=== PATIENT | female | born 1930 | race Caucasian/White ===

== ENCOUNTER 2016-08-31 03:20 | Emergency (ER) | payer OTHER ==
[~2016-08-31] VITALS: Ht 165.1 cm; Wt 72.6 kg
[~2016-08-31 03:20] MED LIST: ACCU-CHECK SOF1 EACH; ACETAMINOPHEN325 M1; ACETAMINOPHEN325 M1 PO; ALPRAZOLAM 0.50.5 M1 PO; ALPRAZOLAM 0.50.5 MG PO; ALPRAZOLAM PO; AMARYL1 MG; AMBIEN 5 MG TABL5 M1 PO; AMITRIPTYLINE H25 M2 PO; AMLODIPINE BESYL5 M1 PO; ARTIFICIAL TEAR15 M1 OPHTHALMIC; ASPERCREME 1141.7 GM TP; ASPERCREME76.5 GM TP; ASPIR 8181 M1 PO; ASPIR 8181 MG PO; ATIVAN0.5 MG; AUGMENTIN 875875 M1 PO; B12INJ IM; BENTYL; BENTYL 10 MG CA10 MG PO; BENTYL10 MG PO; BISAC-EVAC10 MG; BISAC-EVAC10 MG RECTAL; BONIVA150 MG; BUSPIRONE HCL10 MG PO; BUTALB-APAP-CA1 EACH PO; BUTRANS1 EAC4 TD; CARVEDILOL12.5 MG PO; CEPHALEXIN 500500 M3 PO; CHLORDIAZEPOXID10 MG PO; CHLORDIAZEPOXIDE5 M2 PO; CITRATE OF MAG296 ML; CLOBETASOL PROP50 M1; CLOTRIMAZOLE-BE15 GM TOP; CLOTRIMAZOLE-BE30 M1 TP; CONSTULOSE10 GM/152 PO; COREG6.25 MG PO; DESYREL150 MG; DONNATAL E16.2 MG/1 PO; DONNATAL PO; DURAGESIC1 EAC2 TD; ENDOCET 10-3251 EACH; EXCEDRIN CAPLE1 EACH PO; FAMOTIDINE20 MG PO; FENTANYL PA25 MCG/HR TD; FENTANYL PA25 MCG/HR TRANSDERM; FENTANYL1 EACH TD; FERRO-TIME325 MG PO; FIBER SMOOTH PO; GENTEAL GEL DRO15 ML OPHTHALMIC; GLUCAGON IM; GLUCOPHAGE1000 MG; GLUCOPHAGE500 MG PO; GLUCOSE4 GM PO; GLUTOSE GEL 1515 G1 PO; GLYCOLAX POWDER17 G1 PO; HUMALOG100 UNIT/1 SUBQ; IMDUR 30 MG TAB30 M1 PO; IRON325 PO; ISOSORBIDE MONO30 M1 PO; LAMICTAL; LAMICTAL100 MG PO; LAMOTRIGINE200 MG PO; LEVOTHYROXINE0.05 MG PO; LIQUITEARS15 ML; LISINOPRIL20 MG; LOPERAMIDE 2 MG2 M1; LOTEMAX5 ML OPHTHALMIC; MARINOL2.5 MG PO; MEDROL DOSPAK21 TA1 PO; MEDROL4 MG PO; MELATONIN3 MG PO; METAMUCIL PAC1 UDPKT PO; METAMUCIL POWD822 GM PO; METHOCARBAMOL500 M2 PO; MINTOX; MIRALAX17 GM PO; MIRALAX255 GM; MISOPROSTOL 2200 MC1 PO; MISOPROSTOL PO; MOM PO; MS CONTIN15 MG PO; MYLANTA 12 OZ355 M1 PO; NITRODUR; NITROGLYCERIN0.4 MG SL; NITROGLYCERIN0.4 MG SUBLING; NITROSTAT0.4 MG; NITROSTAT0.4 MG SUBLING; NIZORAL120 ML; NIZORAL120 ML TOP; NORCO 10-325 T1 EACH PO; NORVASC5 MG PO; NYSTATIN 100,0015 G1 TOP; ONDANSETRON HCL4 M2 PO; ONDANSETRON HCL4 M3 PO; PAXIL10 MG PO; PAXIL20 MG PO; PERCOCET 10-321 EACH PO; PERCOCET 5-3251 EACH PO; PERCOCET 7.5-31 EACH PO; PRILOSEC 20 MG20 MG PO; PRINIVIL20 MG PO; REFRESH OPTIVE10 ML OPHTHALMIC; REGLAN 10 MG TA10 MG PO; REMERON15 MG PO; ROBINUL0.2 MG/1 M PO; SENOKOT-S1 TA1 PO; SEROQUEL 25 MG25 M1; SEROQUEL 50 MG50 M1 PO; SEROQUEL XR400 M1 PO; SEROQUEL200 MG PO; SEROQUEL400 MG PO; SPECTAZOLE; SUSTANE EYE DROPS; SYSTANE 0.3-0.1 EACH OP; SYSTANE BALANCE10 ML OPHTHALMIC; SYSTANE GEL10 GM OP; SYSTANE1 EACH TP; TIZANIDINE HCL 22 M1 PO; TOPROL XL50 MG PO; TRAMADOL 50 MG50 MG PO; TRIAMCINOLONE 080 G3 TP; TRIAMCINOLONE A80 G2 TOP; TYLENOL W/CODEI1 TA2 PO; TYLENOL325 MG PO; ULTRAM 50MG TAB50 MG PO; UNICOMPLEX M TA1 TA1 PO; XANAX XR1 MG PO; XANAX XR2 MG PO; ZOFRAN4 MG PO; [UNRECOGNIZED DRUG - CODE] PO; [UNRECOGNIZED DRUG - OTHER] PO
[2016-08-31 03:41] LABS: HEMATOCRIT 35.5 % (37.0-47.0); HEMOGLOBIN 12.4 gm/dL (12.0-15.0); MCH 33.7 pg (26.0-34.0); MCHC 34.9 g/dL (28.0-37.0); MCV 96.6 fL (80.0-100.0); PLATELET COUNT 261 thou/uL (150-400); RBC 3.68 mil/uL (4.20-5.00); RDW 13.4 % (10.5-14.5); WBC 6.9 thou/uL (4.0-11.0)
[2016-08-31] MEDS ORDERED: IRON325 PO (03:45)
[2016-08-31] MEDS ORDERED: CHLORDIAZEPOXID10 MG PO (03:46)
[2016-08-31 03:53] LABS: CALCIUM 8.9 mg/dL (8.5-10.1); CREATININE 1.1 mg/dL (0.6-1.0); POTASSIUM 4.7 mmol/L (3.5-5.1)
[2016-08-31 03:58] LABS: ALBUMIN 3.9 g/dL (3.4-5.0); TOTAL BILIRUBIN 0.5 mg/dL (<0.1-1.0); TOTAL PROTEIN 6.8 g/dL (6.4-8.2)
[2016-08-31 03:59] LABS: MANUAL DIFF YES
[2016-08-31 04:28] LABS: ABSOLUTE NEUTROPHILS 4.5 thou/uL (1.4-8.2); TOTAL CELL COUNT 100
[2016-08-31 04:53] LABS: URINE BILIRUBIN NEGATIVE (Negative); URINE BLOOD NEGATIVE (Negative); URINE COLOR YELLOW; URINE GLUCOSE-RANDOM* NEGATIVE (Negative); URINE KETONES NEGATIVE (Negative); URINE LEUKOCYTES-REFLEX NEGATIVE (Negative); URINE PROTEIN (DIPSTICK) NEGATIVE (Negative); URINE UROBILINOGEN 0.2 E.U./dl (0.2-1.0)
[2016-08-31] MEDS ORDERED: SENOKOT-S1 TA1 PO (05:04)
== END 2016-08-31 05:10 ==
LOC: ER 03:20
PROVIDERS: Emergency Medicine
DX: R10.9 Unspecified abdominal pain (principal); M54.5 Low back pain; Z96.642 Presence of left artificial hip joint; I10 Essential (primary) hypertension; E11.9 Type 2 diabetes mellitus without complications; F32.9 Major depressive disorder, single episode, unspecified

== ENCOUNTER 2016-08-31 08:24 | Emergency (ER) | payer OTHER ==
[~2016-08-31] VITALS: Ht 165.1 cm; Wt 74.8 kg
== END 2016-08-31 10:43 ==
LOC: ER 08:24
DX: M54.89 Other dorsalgia (principal); Z96.642 Presence of left artificial hip joint; I10 Essential (primary) hypertension; E11.9 Type 2 diabetes mellitus without complications; F32.9 Major depressive disorder, single episode, unspecified; Z98.890 Other specified postprocedural states

== ENCOUNTER 2016-09-05 08:35 | Emergency (ER) | payer OTHER ==
[~2016-09-05] VITALS: Ht 165.1 cm; Wt 73.9 kg
[~2016-09-05 08:35] MED LIST changes: -ALLERGY RELIEF10 M1 PO; -MIRTAZAPINE15 M2 PO; -OXYCODONE-ACET1 EACH PO
[2016-09-05] MEDS ORDERED: ALLERGY RELIEF10 M1 PO (08:51)
[2016-09-05] MEDS ORDERED: MIRTAZAPINE15 M2 PO (08:51)
[2016-09-05] MEDS ORDERED: REMERON15 MG PO (13:19)
[2016-09-05] MEDS ORDERED: OXYCODONE-ACET1 EACH PO (13:54)
== END 2016-09-05 12:53 | disposition home or self-care (01) ==
LOC: ER 08:35
DX: G89.29 Other chronic pain (principal); M54.5 Low back pain; I10 Essential (primary) hypertension; E11.9 Type 2 diabetes mellitus without complications; K58.9 Irritable bowel syndrome, unspecified; G43.909 Migraine, unspecified, not intractable, without status migrainosus; F32.9 Major depressive disorder, single episode, unspecified; M53.3 Sacrococcygeal disorders, not elsewhere classified; F10.10 Alcohol abuse, uncomplicated

== ENCOUNTER → 2016-09-05 | Outpatient (CLI) | payer OTHER ==
[~2016-09-05] VITALS: Ht 165.1 cm; Wt 70.1 kg
[~2016-09-05] MED LIST changes: +ALLERGY RELIEF10 M1 PO; +MIRTAZAPINE15 M2 PO; +OXYCODONE-ACET1 EACH PO
--- NOTE | ~2016-09-05 | HPC ---
[facility] [place] [address] PAIN MANAGEMENT CONSULTATION Name: SARAVANAN HERNANDEZ Room #: REG [facility] M.R.#: [id number] Admission: 09/05/16 Attend Phys: Bhaskar Underwood DO Discharge: Date of : 32 Report #: [id number] THIS REPORT FOR: //name// CC: Kelechi Underwood The patient is an 85-year-old female, long known to the pain clinic, being treated for chronic pain syndrome requiring complex medication management, history of lumbar radiculopathy, axial back pain and headaches. Last seen in pain clinic, 07/18/2016. We continued her on Duragesic 25 mcg q. 72 hours, Fioricet for headaches, limit 45 tablets for 30 days and tizanidine 2 mg t.i.d. for spasm. In the interval since we last saw her, she has been in the ER several times, 08/31/2016, she was in for constipation. 09/05/2016, she was in for increasing back pain and again this morning, she was in for increasing low back pain. She had 2 boluses of morphine with some efficacy. She returns to pain clinic noting pain is in the posterior aspect of the legs, low back in L5 distribution. Pain is exacerbated with standing and walking. She rates it up to an 8/10, sharp, and aching. It is episodic. PHYSICAL EXAMINATION: Relatively unchanged, 85-year-old female, BMI is 25.7 kilograms per meter squared. Vital signs are stable. She has somewhat of a flat affect and is on multiple central acting agents for her significant psychiatric concerns, she takes mirtazapine, chlordiazepoxide at bedtime, Seroquel, Lamictal, buspirone. Objectively lower extremity strength is diminished, but symmetric. Straight leg raise is positive bilaterally. Diffuse tenderness across the low back. No discrete trigger points are noted. Skin integument is otherwise intact. We reviewed the MRI from 2014 (12/09/2014), which notes diffuse spondylosis with some moderate anterior wedging T1 and T12. Those are old fractures. Slight retrolisthesis L1 on L2. ASSESSMENT: 1. Symptomatic lumbar radiculopathy by clinical exam with bilateral L5-S1 radicular symptoms. With acute pain presently, we have elected to get the patient a low dose injection of Toradol 50 mg IM (EGFR is moderately diminished at 47, she does not take any oral anti-inflammatory medications). 2. We will seek authorization for lumbar epidural injection under fluoroscopy at L5-S1 next week. 3. I have taken the liberty of starting the patient on oxycodone (Percocet 5/325) t.i.d. I gave her prescription for 21 tablets. Continue Duragesic unchanged. Discharged in good and stable condition. We will seek authorization for lumbar [address] [address] PAIN MANAGEMENT CONSULTATION Name: SARAVANAN HERNANDEZ Room #: REG Felecia Castellanos#: [id number] Admission: 09/05/16 Attend Phys: Bhaskar Underwood DO Discharge: Date of : 32 Report #: [id number] epidural injection under fluoroscopy at next visit. She has ongoing radicular pain, bilateral L5 distribution, positive neural tensioning symptoms. She has been to the ER now twice with the acute exacerbation of pain in the last 2 weeks. She is intolerant of oral antinflammatory medications due to somewhat tenuous renal function. I did give her a low dose IM injection today of Toradol. She prior had a lumbar epidural injection in July of 2015 with incremental improvement of baseline pain. <ELECTRONICALLY SIGNED> By: Bhaskar Underwood DO 09/06/16 0837 1600 0003 Bhaskar Underwood DO /nt
[2016-09-05 13:14] VITALS: BP 144/72
== END | disposition home or self-care (01) ==
LOC: PAIN 07:17
DX: G89.4 Chronic pain syndrome (principal); M54.16 Radiculopathy, lumbar region; M47.894 Other spondylosis, thoracic region; I10 Essential (primary) hypertension

== ENCOUNTER 2016-09-12 08:15 | Emergency (ER) | payer OTHER ==
[~2016-09-12] VITALS: Ht 165.1 cm; Wt 69.8 kg
[2016-09-12] MEDS ORDERED: FENTANYL PA25 MCG/HR TRANSDERM (11:11)
[2016-09-16] MEDS ORDERED: VITAMIN B-12500 MCG PO (05:02)
== END 2016-09-12 09:42 | disposition home or self-care (01) ==
LOC: ER 08:15
DX: M54.5 Low back pain (principal); I10 Essential (primary) hypertension; E11.9 Type 2 diabetes mellitus without complications; K58.9 Irritable bowel syndrome, unspecified; M10.9 Gout, unspecified; G43.909 Migraine, unspecified, not intractable, without status migrainosus; F32.9 Major depressive disorder, single episode, unspecified; Z96.642 Presence of left artificial hip joint

== ENCOUNTER → 2016-09-12 | Outpatient (CLI) | payer OTHER ==
[~2016-09-12] VITALS: Ht 165.1 cm; Wt 69.9 kg
[~2016-09-12] MED LIST changes: +ALLERGY RELIEF10 M1 PO; +MIRTAZAPINE15 M2 PO; +OXYCODONE-ACET1 EACH PO
--- NOTE | ~2016-09-12 | HPC ---
[facility] [address] [place] [facility] [place] [address] PAIN MANAGEMENT CONSULTATION Name: SARAVANAN HERNANDEZ Room #: REG Felecia Roberts.#: [id number] Admission: 09/12/16 Attend Phys: Bhaskar Underwood DO Discharge: Date of : 32 Report #: [id number] THIS REPORT FOR: //name// CC: Kelechi Underwood HISTORY OF PRESENT ILLNESS: The patient is an unfortunate 85-year-old female, long treated for chronic pain syndrome, lumbar radiculopathy, axial back pain, right hip pain, status post total hip arthroplasty, requiring complex medication management. I last saw the patient on 09/05/2016, continued on Duragesic 25 mcg q. 72 hours, Fioricet for headaches, and tizanidine for muscle spasm. At last visit, we elected to move forward with authorization for epidural injection under fluoroscopy. I gave her a short course of Percocet 5/325, 21 tablets to use p.r.n. In the interval since I last saw her, she has been in the ER 3 more times later that day, again on 09/06/2016 and 09/12/2016. 09/12/2016 was this morning, she was seen for increasing back pain and got an IM injection of morphine. Presents to the pain clinic today with ongoing pain. The pain is in low back, right hip and leg. Antalgic gait with positive straight leg raise on this side. ASSESSMENT: Symptomatic lumbar radiculopathy. RECOMMENDATIONS: Lumbar epidural injection under fluoroscopy today. If symptoms do not improve, we will have the patient to follow up with Dr. Norris for evaluation of her right total hip arthroplasty. She had had total hip arthroplasty some 5 years ago, but unfortunately that procedure was complicated with an infection. The patient claims that she was told that the new hip arthroplasty would really last "5 years", and she has fixated on this number. ASSESSMENT: Symptomatic lumbar radiculopathy. PROCEDURE NOTE: Lumbar epidural injection under fluoroscopy. DESCRIPTION OF PROCEDURE: After both written and informed consent to include risk of spinal cord damage, increased pain, weakness and dural puncture, the patient was taken to the fluoroscopy suite, placed in the prone position. After sterile prep and drape, a skin wheal with lidocaine was raised. A 22-gauge epidural Tuohy needle was inserted in the midline at L5-S1 with good loss to resistance. Negative aspiration for cerebrospinal fluid or blood was noted. Then 1 mL of Omnipaque under biplanar fluoroscopy showed good spread within the epidural space. This was followed with 80 mg of triamcinolone plus 12 mcg of fentanyl was then injected to flush the needle; it was removed. The patient was [address] [address] PAIN MANAGEMENT CONSULTATION Name: SARAVANAN HERNANDEZ Room #: REG SHAHANA Castellanos#: [id number] Admission: 09/12/16 Attend Phys: Bhaskar Underwood DO Discharge: Date of : 32 Report #: [id number] monitored for an appropriate period of time and discharged in good and stable condition. By: [id number] Bhaskar Underwood DO /nt
[2016-09-12 10:18] VITALS: BP 179/70
== END ==
LOC: PAIN 07:02
DX: G89.4 Chronic pain syndrome (principal); M54.16 Radiculopathy, lumbar region; I10 Essential (primary) hypertension

== ENCOUNTER 2016-09-18 18:30 | Emergency (ER) | payer OTHER ==
[~2016-09-18] VITALS: Ht 165.1 cm; Wt 69.8 kg
[~2016-09-18 18:30] MED LIST changes: +VITAMIN B-12500 MCG PO
[2016-09-18] MEDS ORDERED: PERCOCET 5-3251 EACH PO (19:32)
== END 2016-09-18 20:38 | disposition home or self-care (01) ==
LOC: ER 18:30
DX: M54.5 Low back pain (principal); G89.29 Other chronic pain; I10 Essential (primary) hypertension; E11.9 Type 2 diabetes mellitus without complications; F32.9 Major depressive disorder, single episode, unspecified; Z96.642 Presence of left artificial hip joint

== ENCOUNTER 2016-09-28 10:40 | Observation (INO) | payer OTHER ==
[~2016-09-28] VITALS: Ht 165.1 cm; Wt 70.3 kg
--- NOTE | ~2016-09-28 | EKG ---
[place] [address] [facility] [place] [address] ELECTROCARDIOGRAM REPORT Name: SARAVANAN HERNANDEZ Room #: 306-P [facility] M.R.#: [id number] Admission: 09/28/16 Attend Phys: Mariano Orozco MD Discharge: Date of : 32 Report #: [id number] THIS REPORT FOR: //name// [facility] ED Test Date: 2016-09-28 Test Time: 10:54:01 Pat Name: SARAVANAN HERNANDEZ Department: Room: 306 Gender: F Professor Of Languages: Daja CAMPUZANO : 1930 Requested By: Gallito Calvillo Order Number: [id number] MD: Chele Melgar Measurements Intervals [place] Rate: 64 P: 33 AR: 173 QRS: 13 QRSD: 98 T: 25 QT: 385 QTc: 398 Interpretive Statements Sinus rhythm No significant abnormality Compared to ECG 03/30/2016 13:45:14 Low QRS voltage now present T wave abnormality less prominent Electronically Signed On 09-28-2016 16:51:52 CDT by Chele Melgar [email or web address] <ELECTRONICALLY SIGNED> By: Chele Melgar MD, [facility] 09/28/16 1651 1054 1054 Chele Melgar MD, [facility] /EPI
--- NOTE | ~2016-09-28 | H ---
[facility] [place] [address] [address] HISTORY AND PHYSICAL Name: SARAVANAN HERNANDEZ Room #: 306-P [facility] M.R.#: [id number] Admission: 09/28/16 Attend Phys: Mariano Orozco MD Discharge: Date of : 32 Report #: [id number] THIS REPORT FOR: //name// CC: Kelechi Orozco DATE OF SERVICE: 09/28/2016 DATE OF ADMISSION: 09/28/2016 CHIEF COMPLAINT: Constipation and not feeling well. HISTORY OF PRESENT ILLNESS: The patient is an 85-year-old female with generalized anxiety, who presents to [facility] Emergency Department because she has not been feeling well. She complains that she has been constipated and has not been feeling well for the past several days. She also has generalized pains in her legs. She states that she has problems with persistent constipation, but having diarrhea and that her current issues with her bowel patterns has resulted in poor oral intake and associated 10-pound weight loss. Workup in the Emergency Department revealed she had low grade temperature 38.0. Otherwise, she also had a sodium of 122, potassium of 5.2, otherwise the rest of her workup was unremarkable. She has been admitted for medical management of fever and hyponatremia. PAST MEDICAL HISTORY: Hypertension, generalized anxiety, fibromyalgia with chronic pain syndrome, hypothyroidism, irritable bowel syndrome with constipation. ALLERGIES: No known drug allergies. MEDICATIONS: Amlodipine 5 mg daily, aspirin 81 mg daily, fentanyl patch 25 mcg per hour patch topical change every 72 hours, ferrous sulfate 325 mg daily at diagnosis, at iron deficiency anemia, levothyroxine 50 mcg daily, loratadine 10 mg daily, Seroquel 400 mg at bedtime, multivitamin 1 tablet daily, vitamin B12 500 mcg daily, Coreg 12.5 mg b.i.d., Lamictal 100 mg b.i.d., lisinopril 20 mg daily, BuSpar 10 mg t.i.d., misoprostol 200 mg t.i.d., Systane eyedrops 1 drop 3 times a day, chlordiazepoxide 10 mg capsule at bedtime p.r.n., Nitrostat 0.4 mg sublingual as needed, tizanidine 2 mg t.i.d. p.r.n. FAMILY HISTORY: Noncontributory. SOCIAL HISTORY: The patient resides at [facility]. She denies tobacco or alcohol use. REVIEW OF SYSTEMS: GENERAL: A subjective 10-pound weight [place] [address] HISTORY AND PHYSICAL Name: SARAVANAN HERNANDEZ Room #: 306-P [facility] M.R.#: [id number] Admission: 09/28/16 Attend Phys: Mariano Orozco MD Discharge: Date of : 32 Report #: [id number] HEENT: Negative. NECK: Negative. PULMONARY: Negative. CARDIAC: Negative. GASTROINTESTINAL: Constipation/diarrhea with poor oral intake. GENITOURINARY: Negative. MUSCULOSKELETAL: Chronic leg pains and sees pain management with Dr. Underwood. She ambulates with a walker. LYMPHATICS: Negative. NEUROLOGIC: Generalized anxiety. PHYSICAL EXAMINATION: GENERAL: The patient is pleasant, cooperative female sitting up in her hospital bed in no apparent distress. VITAL SIGNS: Reveal temperature of 38.0 initially, pulse of 68, respiratory rate 18, blood pressure 135/53. HEENT: Head is normocephalic, atraumatic. Pupils are equal and reactive. Extraocular muscles are intact. Oropharynx is moist. NECK: Supple. Trachea midline. LUNGS: Clear to auscultation bilaterally. CARDIOVASCULAR: Regular rate and rhythm. ABDOMEN: Soft, nontender, nondistended with normoactive bowel sounds. SKIN: Warm and dry. Turgor adequate. LYMPHATICS: No cervical or axillary lymphadenopathy. NEUROLOGIC: She is awake, alert and oriented x 3. Cranial nerves 2-12 are within normal limits without focal neurologic deficit or lateralizing signs. LABORATORY DATA: Pertinent labs include sodium 122, potassium 5.2, chloride 89, ALT of 21. Troponin is less than 0.04, CBC is unremarkable. Urinalysis is unremarkable, CT abdomen and pelvis shows hiatal hernia. No focal inflammatory etiology for patient's symptoms. There is noted compression deformities at T12 and L1. ASSESSMENT AND PLAN: 1. Fever. 2. Hyponatremia. 3. Irritable bowel syndrome with predominant constipation. 4. Hypertension. 5. Fibromyalgia. 6. Anxiety. PLAN: Monitor her vital signs and watch for fever. We will hold antibiotics at this time and monitor her bowel pattern and monitor for watching for diarrhea as gastroenteritis can cause fevers. We will repeat CBC with diff and BMP in the morning. We will resume home medications. We will also initiate DVT and GI prophylaxis. [address] [place] [address] HISTORY AND PHYSICAL Name: SARAVANAN HERNANDEZ Room #: 306-P [facility] MRayrayRRayray#: [id number] Admission: 09/28/16 Attend Phys: Mariano Orozco MD Discharge: Date of : 32 Report #: [id number] CODE STATUS: DNR per patient's request. <ELECTRONICALLY SIGNED> By: Mariano Orozco MD 09/29/16 1238 2102 1209 Mariano Orozco MD /nt
[2016-09-28 10:41] VITALS: BP 135/53
[2016-09-28 11:53] LABS: HEMATOCRIT 35.2 % (37.0-47.0); HEMOGLOBIN 12.6 gm/dL (12.0-15.0); MANUAL DIFF YES; MCHC 35.7 g/dL (28.0-37.0); MCV 98.1 fL (80.0-100.0); PLATELET COUNT 328 thou/uL (150-400); RBC 3.59 mil/uL (4.20-5.00); RDW 12.2 % (10.5-14.5); WBC 7.4 thou/uL (4.0-11.0)
[2016-09-28 12:01] LABS: ANION GAP 8 mmol/L (7-16); BUN 17 mg/dL (7-18); CHLORIDE 89 mmol/L (98-107); CO2 25 mmol/L (21-32); GLUCOSE 162 mg/dL (74-106); POTASSIUM 5.2 mmol/L (3.5-5.1); SODIUM 122 mmol/L (136-145)
[2016-09-28 12:08] LABS: ALBUMIN 3.8 g/dL (3.4-5.0); ALKALINE PHOSPHATASE 50 U/L (46-116); SGOT 16 U/L (15-37); SGPT 21 U/L (30-65); TOTAL BILIRUBIN 0.7 mg/dL (<0.1-1.0); TOTAL PROTEIN 6.7 g/dL (6.4-8.2); TROPONIN-I < 0.04 ng/mL (<0.04-0.07)
[2016-09-28 12:11] LABS: ABSOLUTE NEUTROPHILS 6.5 thou/uL (1.4-8.2); TOTAL CELL COUNT 100
[2016-09-28 12:12] LABS: ANISOCYTOSIS SLIGHT
[2016-09-28 12:25] LABS: URINE BILIRUBIN NEGATIVE (Negative); URINE BLOOD NEGATIVE (Negative); URINE COLOR YELLOW; URINE GLUCOSE-RANDOM* NEGATIVE (Negative); URINE KETONES NEGATIVE (Negative); URINE LEUKOCYTES-REFLEX NEGATIVE (Negative); URINE PROTEIN (DIPSTICK) NEGATIVE (Negative); URINE SPECIFIC GRAVITY <= 1.005 (1.003-1.035); URINE UROBILINOGEN 0.2 E.U./dl (0.2-1.0)
[2016-09-28] MEDS ORDERED: LEVSIN0.125 MG PO (13:15)
[2016-09-28 16:00] VITALS: BP 117/56
[2016-09-28 19:38] VITALS: BP 167/52
[2016-09-29 04:04] VITALS: BP 164/56
[2016-09-29 04:47] LABS: ABSOLUTE NEUTROPHILS 4.3 thou/uL (1.4-8.2); BASOPHILS 0.2 % (0.0-2.0); EOSINOPHILS 0.6 % (0.0-3.0); HEMATOCRIT 32.8 % (37.0-47.0); HEMOGLOBIN 11.7 gm/dL (12.0-15.0); LYMPHOCYTES 20.5 % (24.0-44.0); MCH 34.9 pg (26.0-34.0); MCHC 35.7 g/dL (28.0-37.0); MCV 97.9 fL (80.0-100.0); MONOCYTES 11.6 % (1.0-8.0); PLATELET COUNT 294 thou/uL (150-400); POLYS 67.1 % (36.0-66.0); RBC 3.35 mil/uL (4.20-5.00); RDW 12.1 % (10.5-14.5); WBC 6.3 thou/uL (4.0-11.0)
[2016-09-29 04:56] LABS: CALCIUM 8.4 mg/dL (8.5-10.1); CREATININE 0.9 mg/dL (0.6-1.0); POTASSIUM 4.4 mmol/L (3.5-5.1)
[2016-09-29 05:02] LABS: MANUAL DIFF NO
[2016-09-29 08:00] VITALS: BP 116/62
[2016-09-29] MEDS ORDERED: COZAAR 25 MG TA25 M2 PO (12:04)
[2016-09-29 15:59] VITALS: BP 116/62
[2016-09-29 16:00] VITALS: BP 137/60
== END 2016-09-29 17:47 ==
LOC: ER 10:40 → EROBS 14:30 → 3N 15:29
PROVIDERS: Emergency Medicine; Internal Medicine
DX: K58.1 Irritable bowel syndrome with constipation (principal); I10 Essential (primary) hypertension; F41.1 Generalized anxiety disorder; M79.7 Fibromyalgia; G89.29 Other chronic pain; E03.9 Hypothyroidism, unspecified; E87.1 Hypo-osmolality and hyponatremia
CPT/HCPCS: 23017; 23019; 23024; 23029

== ENCOUNTER 2016-11-20 05:55 | Emergency (ER) | payer OTHER ==
[~2016-11-20] VITALS: Ht 165.1 cm; Wt 70.3 kg
[~2016-11-20 05:55] MED LIST changes: +COZAAR 25 MG TA25 M2 PO; +LEVSIN0.125 MG PO
[2016-11-20] MEDS ORDERED: LIDODERM 5%1 PATC1 TRANSDERM ×2 (06:10→07:18)
[2016-11-20] MEDS ORDERED: ZYPREXA5 MG (06:11)
[2016-11-20] MEDS ORDERED: AMITRIPTYLINE H10 M3 PO (06:11)
[2016-11-20] MEDS ORDERED: THEREMS-M1 EACH (06:12)
[2016-11-20] MEDS ORDERED: MILK OF MA2400 MG/10 PO (06:12)
[2016-11-20] MEDS ORDERED: IRON325 PO (06:15)
[2016-11-20] MEDS ORDERED: CLARITIN10 MG PO (06:15)
[2016-11-20] MEDS ORDERED: COZAAR 25 MG TA25 M1 PO (06:17)
[2016-11-20] MEDS ORDERED: ZOLOFT50 MG (06:18)
[2016-11-20] MEDS ORDERED: VITAMIN B12 PO (06:19)
[2016-11-20] MEDS ORDERED: CARVEDILOL12.5 MG PO (06:20)
[2016-11-20] MEDS ORDERED: BUSPIRONE HCL10 MG (06:21)
[2016-11-20] MEDS ORDERED: PREDNISONE 10 M10 MG PO (06:21)
[2016-11-20] MEDS ORDERED: CYTOTEC200 MCG (06:23)
[2016-11-20] MEDS ORDERED: SYSTANE 0.3-0.1 EACH OPHTHALMIC (06:24)
[2016-11-20] MEDS ORDERED: TIZANIDINE HCL2 M1 (06:25)
== END 2016-11-20 10:28 | disposition home or self-care (01) ==
LOC: ER 05:55
DX: G89.29 Other chronic pain (principal); M54.5 Low back pain; I10 Essential (primary) hypertension; E11.9 Type 2 diabetes mellitus without complications; G43.909 Migraine, unspecified, not intractable, without status migrainosus; F32.9 Major depressive disorder, single episode, unspecified; Z96.642 Presence of left artificial hip joint

== ENCOUNTER → 2016-11-25 | Outpatient (CLI) | payer OTHER ==
[~2016-11-25] VITALS: Ht 165.1 cm; Wt 69.6 kg
[~2016-11-25] MED LIST changes: +AMITRIPTYLINE H10 M3 PO; +BUSPIRONE HCL10 MG; +CLARITIN10 MG PO; +COZAAR 25 MG TA25 M1 PO; +CYTOTEC200 MCG; +LIDODERM 5%1 PATC1 TRANSDERM; +MILK OF MA2400 MG/10 PO; +PREDNISONE 10 M10 MG PO; +SYSTANE 0.3-0.1 EACH OPHTHALMIC; +THEREMS-M1 EACH; +TIZANIDINE HCL2 M1; +VITAMIN B12 PO; +XANAX 0.5 MG0.5 MG PO; +ZOLOFT50 MG; +ZYPREXA5 MG
--- NOTE | ~2016-11-25 | HPC ---
[facility] [place] [place] [address] PAIN MANAGEMENT CONSULTATION Name: SARAVANAN HERNANDEZ [facility] [id number] Admission: 11/25/16 Attend Phys: Bhaskar Underwood DO Discharge: Date of : 32 Report #: [id number] THIS REPORT FOR: //name// CC: Kelechi Underwood DATE OF SERVICE: 11/25/2016 The patient is an 86-year-old female typically treated for lumbar radiculopathy, axial back pain, high risk complex medication management. Last seen in the pain clinic 09/12/2016. The patient returns to pain clinic today for prolonged visit, she was seen from 10:09 to 10:35. Greater than 50% of this time was spent counseling the patient. The patient has consistently shown up in the ER. She was actually seen morning of her last visit 09/12/2016. Seen again 09/16/2016, again 09/18/2016, again 09/21/2016 and again 09/28/2016, admitted 09/28/2016 overnight and discharged 09/29/2016 for fever and abdominal pain and constipation. She then presented to the ER at [facility], she was seen there 10/08/2016 and admitted to psychiatric hospital through 10/28/2016. She had ECT there for major depression. Seen back in our ER again 11/20/2016. Her ER visits are usually for axial back pain and/or abdominal pain. Returns to pain clinic today and continuing to take Duragesic 25 mcg q. 72 hours. Last hospitalization at [facility], they had kept her on Percocet 5/325, which they are using p.r.n., they have not used more regularly t.i.d. and she is doing a little better with this. Again, she did present to the ER 5 days ago for exacerbation of her back pain. I spent a long time today talking with the patient about this. She has axial back pain, which she feels gets worse and she gets worried that she is going to "become paralyze" and presents to the ER. Every single ER visit I have looked at shows absolutely no change in her physical exam. She occasionally gets a shot of morphine. She continually, when I first started seeing her, was asking for more and more medication. Again, she has been stable on her baseline medication for some time. PHYSICAL EXAMINATION: Today is essentially unremarkable. She uses a walker for balance, but stands quite upright when she walks. Gait is tandem. Lower extremity strength is preserved. Complains of low back, bilateral leg pain that she describes as sharp, aching and shooting, she rates it 6 on a VAS. She denies bowel or bladder continence changes, denies saddle anesthesia. Again, [address] [address] PAIN MANAGEMENT CONSULTATION Name: SARAVANAN HERNANDEZ Room #: REG SHAHANA Castellanos#: [id number] Admission: 11/25/16 Attend Phys: Bhaskar Underwood DO Discharge: Date of : 32 Report #: [id number] lower extremity strength is generally symmetric. We reviewed the fact that opiate medications are being used to provide analgesia adequate to support activities of daily living, not attempting to achieve a specific pain score on the 0-10 Visual Analog Scale. The current opiate medications are providing sufficient analgesia to allow the patient to participate in activities of daily living. The patient is not exhibiting any aberrant behavior suggestive of drug diversion. The patient is not having any adverse reactions to medications. The patient is not suffering from daytime somnolence or mental acuity changes. The patient is managing opiate-induced constipation with appropriate [id number] agents and dietary considerations. The patient was counseled on concern for caution with operating a motor vehicle while using opiate medications. A physical exam was performed and the patient's functional status was evaluated. All patients with back pain were advised against the bed rest greater than 4 days and were advised to return to normal activities. Pain score assessment was noted and the treatment plan was reviewed with the patient. All current medications, both prescribed and OTC were reviewed and reconciled on the electronic medical record. Tobacco screening was accomplished and smoking cessation was advised when indicated. BMI was noted and diet/exercise modification was recommended for all patients following outside normal parameters. I reviewed with the patient today their responsibilities to safeguard prescription medications, reviewed their responsibility to utilize medications only as prescribed by the physician. They are to seek and receive pain medications only from 1 physician group ( [facility]). They are to use 1 pharmacy and keep the clinic informed if they change pharmacies. Their responsibilities include making followup visits in a timely fashion and to avoid abrupt discontinuation of medication usage. Their responsibilities further include bringing their medications (bottles from the pharmacy with residual pills) to the visit for possible confirmation of pill counts and the patient understands it is their responsibility to submit to random drug screens to ensure both that the medications prescribed are present, and that no other controlled substances are present. All prescriptions provided today were generated electronically. ASSESSMENT: Lumbar radiculopathy, axial back pain requiring complex medication management. RECOMMENDATION: Continue Duragesic 25 mcg q. 72 hours, continue Lidoderm patch topically to the low back, continue Percocet 5/325 up to t.i.d. Strongly recommend the patient avoid going to the ER unless there is a dramatic change, i.e., bowel or bladder incontinence, profound weakness of the leg which [facility] [address] [place] [address] PAIN MANAGEMENT CONSULTATION Name: KHUSHIMONIQUEPETERSARAVANAN Room #: PAIGE Castellanos#: [id number] Admission: 11/25/16 Attend Phys: Bhaskar Underwood DO Discharge: Date of : 32 Report #: [id number] precludes ambulation. Otherwise, I will see her back in 1 month for reevaluation. <ELECTRONICALLY SIGNED> By: Bhaskar Underwood DO 11/25/16 1427 1224 1303 Bhaskar Underwood DO /nt
[2016-11-25 10:08] VITALS: BP 145/69
== END | disposition home or self-care (01) ==
LOC: PAIN
DX: M54.16 Radiculopathy, lumbar region (principal); I10 Essential (primary) hypertension; D64.9 Anemia, unspecified; G43.909 Migraine, unspecified, not intractable, without status migrainosus; M79.7 Fibromyalgia; Z79.899 Other long term (current) drug therapy; Z79.891 Long term (current) use of opiate analgesic; Z79.82 Long term (current) use of aspirin

== ENCOUNTER → 2017-01-06 | Outpatient (CLI) | payer OTHER ==
[~2017-01-06] VITALS: Ht 165.1 cm; Wt 70.9 kg
[~2017-01-06] MED LIST changes: +DURAGESIC25 MCG/HR TRANSDERM; +LIDODERM1 EACH TRANSDERM; +POLYETHYLENE G255 G1 PO
--- NOTE | ~2017-01-06 | HPC ---
[facility] [place] [address] PAIN MANAGEMENT CONSULTATION Name: SARAVANAN HERNANDEZ Room #: REG [facility] M..#: [id number] Admission: 01/06/17 Attend Phys: Bhaskar Underwood DO Discharge: Date of : 32 Report #: [id number] THIS REPORT FOR: //name// CC: Kelechi Udnerwood The patient is an 86-year-old female being treated for lumbar radiculopathy, axial back pain, chronic pain syndrome requiring high-risk complex medication management. She was last seen in the pain clinic on 11/25/2016. Continue Duragesic 25 mcg q. 72 hours, Percocet 5/325 three a day. At last visit, we had reviewed extensively the patient's significant interval past. She had been admitted to [facility] for a period of time. I believe she had some ECT. She had had multiple ER visits prior to the last visit. Every single ER visit I looked at showed absolutely no change in her physical exam. She occasionally gets a shot of morphine. I had a long discussion with the patient at last visit. Strongly recommending that she avoid the ER unless there were objective criteria that would warrant hospitalization. We did write for a Lidoderm patch, which have given her efficacy in the past. Returns to pain clinic today noting the Lidoderm patch, which finally get approved on 12/26 and has been helpful for mid back pain. She still has some ongoing radicular pain, but otherwise notes pain medications are providing sufficient analgesia to participate in activities of daily living. She appears alert and oriented today. Is complaining of some ongoing radicular symptoms, we had done a single epidural injection back in 08/2016 with good overall improvement of lumbar radicular symptoms. She is having fairly classic L5 radicular pain radiating down the posterior lateral aspect of the leg into the middle foot. Slight decreased plantar flexion and positive straight leg raise, left greater than right. We reviewed the fact that opiate medications are being used to provide analgesia adequate to support activities of daily living, not attempting to achieve a specific pain score on the 0-10 Visual Analog Scale. The current opiate medications are providing sufficient analgesia to allow the patient to participate in activities of daily living. The patient is not exhibiting any aberrant behavior suggestive of drug diversion. The patient is not having any adverse reactions to medications. The patient is not suffering from daytime somnolence or mental acuity changes. The patient is managing opiate-induced constipation with appropriate uemc-gyu-tsautnr agents and dietary considerations. The patient was counseled on concern for caution with operating a motor vehicle while using opiate medications. A physical exam was performed and the patient's functional status was evaluated. All patients with back pain were advised against the bed rest greater than [address] [address] PAIN MANAGEMENT CONSULTATION Name: SARAVANAN HERNANDEZ Room #: REG CLI Jasmin#: [id number] Admission: 01/06/17 Attend Phys: Bhaskar Underwood DO Discharge: Date of : 32 Report #: [id number] and were advised to return to normal activities. Pain score assessment was noted and the treatment plan was reviewed with the patient. All current medications, both prescribed and OTC were reviewed and reconciled on the electronic medical record. Tobacco screening was accomplished and smoking cessation was advised when indicated. BMI was noted and diet/exercise modification was recommended for all patients following outside normal parameters. I reviewed with the patient today their responsibilities to safeguard prescription medications, reviewed their responsibility to utilize medications only as prescribed by the physician. They are to seek and receive pain medications only from 1 physician group ( [facility]). They are to use 1 pharmacy and keep the clinic informed if they change pharmacies. Their responsibilities include making followup visits in a timely fashion and to avoid abrupt discontinuation of medication usage. Their responsibilities further include bringing their medications (bottles from the pharmacy with residual pills) to the visit for possible confirmation of pill counts and the patient understands it is their responsibility to submit to random drug screens to ensure both that the medications prescribed are present, and that no other controlled substances are present. All prescriptions provided today were generated electronically. ASSESSMENT: Lumbar radiculopathy, axial back pain, chronic pain syndrome requiring complex medication management, stable on baseline medications. RECOMMENDATIONS: 1. Renew Lidoderm. She applies it at 7:00 p.m. and off at 7:00 a.m. I have taken the liberty of writing for 30 patch with 1 refill, continue Percocet 5/325 up to t.i.d. along with Duragesic 25 mcg q. 72 hours. I have taken the liberty of writing for 2 months of current medication. 2. Acute exacerbation of lumbar radiculopathy. PROCEDURE: Lumbar epidural injection under fluoroscopy. PROCEDURE NOTE: After both written and informed consent to include risk of spinal cord damage, increased pain, weakness and dural puncture, the patient was taken to the fluoroscopy suite, placed in the prone position. After sterile prep and drape, a skin wheal with lidocaine was raised. A 22-gauge epidural Tuohy needle was inserted in the midline at level of L5-S1 with good loss to resistance. Negative aspiration for cerebrospinal fluid or blood was noted. Then 1 mL of Omnipaque under biplanar fluoroscopy showed good spread within the epidural space. This was followed with 80 mg of triamcinolone plus 1 mL of 1.5% preservative-free Xylocaine, 0.5 mL Xylocaine was then injected to flush the [facility] [address] [place] [address] PAIN MANAGEMENT CONSULTATION Name: SARAVANAN HERNANDEZ [facility] [id number] Admission: 01/06/17 Attend Phys: Bhaskar Underwood DO Discharge: Date of : 32 Report #: [id number] needle; it was removed. The patient was monitored for an appropriate period of time and discharged in good and stable condition. <ELECTRONICALLY SIGNED> By: Bhaskar Underwood DO 01/08/17 0811 1504 0129 Bhaskar Underwood DO /nt
[2017-01-06 12:45] VITALS: BP 185/80
== END | disposition home or self-care (01) ==
LOC: PAIN 01-03 06:45
DX: M54.16 Radiculopathy, lumbar region (principal); G89.4 Chronic pain syndrome; Z79.899 Other long term (current) drug therapy

== ENCOUNTER 2017-04-04 18:01 | Inpatient (IN) | payer OTHER ==
[~2017-04-04] VITALS: Ht 165.1 cm; Wt 67.8 kg
--- NOTE | ~2017-04-04 | PLAN ---
[facility] [place] [address] REHAB UNIT PLAN OF CARE Name: SARAVANAN HERNANDEZ Room #: 510-P ADM IN M.R.#: [id number] Admission: 04/05/17 Attend Phys: Maurilio Hollis MD Discharge: Date of : 32 Report #: [id number] THIS REPORT FOR: //name// CC: Maurilio [place] DATE OF SERVICE: 04/07/2017 SUBJECTIVE: The patient is seen back today in followup. She is in no distress. Last recorded temperature is 98.4, pulse 84, respirations 20, blood pressure 104/82. The patient is pleasant, in no distress. She follows basic 1 step commands without difficulty. Transfers are min assist with occasional mod assist. She is ambulating 110 feet min assist with a front-wheeled walker. In occupational therapy, lower body dressing is min assist with pants skirt. She has been mod assist. In speech therapy, she has mvya-cd-ynutmzvb comprehensive deficits. ASSESSMENT: 1. Toxic metabolic encephalopathy. 2. Severe initial hyponatremia that has improved. 3. Gait instability with functional decline. 4. Medication adjustments with pharmacy assisting. 5. Anemia with iron deficiency. 6. Esophageal ulcers per EGD. 7. Severe irritable bowel syndrome. 8. Chronic back pain. 9. Chronic anxiety and depression. PLAN: The overall plan of care is based on the preadmission screen, post-admission physician evaluation and information garnered from therapy assessments. 1. Estimated length of stay is probably at least 10-14 days. 2. Medical prognosis is reasonably good. 3. Anticipated interventions includes the interdisciplinary acute inpatient rehabilitation program with the goal of maximizing her functional independence. 4. Anticipated functional outcomes would be to get her back to her prior functional situation where she was modified independent utilizing a walker. She did have assistance for her instrumental ADLs. 5. Discharge destination would be back to where she lives at the [facility]. 6. Expected therapy by discipline includes PT, OT and Speech 1-hour per day each five days a week throughout the duration of the acute inpatient [address] [address] REHAB UNIT PLAN OF CARE Name: DAVIDSARAVANAN DODSON Room #: 510-P ADM IN M.R.#: [id number] Admission: 04/05/17 Attend Phys: Maurilio Hollis MD Discharge: Date of : 32 Report #: [id number] rehabilitation stay. We will have the outside sales consultant physicians continue to follow. She is on the rehab grayson. <ELECTRONICALLY SIGNED> By: Maurilio Hollis MD 04/08/17 1414 0907 [id number] Maurilio Hollis MD /JONY
--- NOTE | ~2017-04-04 | H ---
[facility] [place] [address] HISTORY AND PHYSICAL Name: SARAVANAN HERNANDEZ Room #: 510-P ADM IN M.R.#: [id number] Admission: 04/05/17 Attend Phys: Maurilio Hollis MD Discharge: Date of : 32 Report #: [id number] THIS REPORT FOR: //name// CC: Kelechi [place] DATE OF SERVICE: 04/05/2017 HISTORY OF PRESENT ILLNESS: This is an 86-year-old female who was originally found down in the bathroom of her assisted living facility. She was admitted, was noted to be very confused with a sodium that on admission was 101. She was given IV normal saline and monitor closely regarding Internal Medicine issues. Pharmacy assist regarding assisting her current medication management. Her sodium did improve up to 135, but she was noted to be considerably encephalopathic with confusion and disorientation. Her primary care physician noted that she was clearly not mentally sharp enough to return back to her Assisted Living Facility and then she had significant functional deficits compared to her premorbid status. She has now been admitted for acute in-hospital inpatient rehabilitation. Her diuretic was stopped. She also was anemic, found to be slightly iron deficient and treated with 5 doses of Venofer. Fecal occult blood testing was positive and GI consult led to an EGD with the findings outlined including the esophageal ulcers. Her last hemoglobin had improved. She was noted to be significantly debilitated along with her metabolic encephalopathy and has been admitted for acute in-hospital inpatient rehabilitation. PAST MEDICAL HISTORY: Includes irritable bowel syndrome, hypertension, diabetes mellitus type 2, gout, migraines, remote history of alcohol abuse, major depression, left hip replacement, osteoarthritis in multiple sites, colonic polyps, hypothyroidism, hyperlipidemia, vitamin B12 deficiency, insomnia. ALLERGIES: No known drug allergies. FAMILY HISTORY: Significant for longevity. SOCIAL HISTORY: Lives at [facility]. There is a son who is her durable power of business attorney. She is a full code. She was modified independent premorbidly utilizing a walker. In occupational therapy, it was noted that her instrumental ADLs were provided. REVIEW OF SYSTEMS: No complaints of chest pain, shortness of breath, abdominal discomfort. She again has some chronic joint aches. PHYSICAL EXAMINATION: GENERAL: An 86-year-old white female, pleasant, disoriented. Follows basic 1 step commands. VITAL SIGNS: Temperature 37.1, pulse 64, respirations 18, blood pressure [facility] [address] [place] [address] HISTORY AND PHYSICAL Name: SARAVANAN HERNANDEZ Room #: 510-P [facility] IN M.R.#: [id number] Admission: 04/05/17 Attend Phys: Maurilio Hollis MD Discharge: Date of : 32 Report #: [id number] 113/52. NEUROLOGIC: There continues to be a latency to her responses. She follows basic 1 step commands. Facies are symmetric. CHEST: Sounded clear to auscultation. CARDIAC: Regular rate and rhythm. ABDOMEN: Bowel sounds positive, nontender. GENITOURINARY AND RECTAL: Deferred. EXTREMITIES: She does have functional range of motion of both upper extremities with strength grade 4-/5. DTRs are trace to 1. Lower extremities, no focal calf swelling, functional range of motion with strength grade 3+ to 4-/5. DTRs are trace to 1. She does need assistance with basic functional mobility skills and short distance attempted ambulation. She has been mod assist with basic transfers and needing min assist, ambulated short distance. ASSESSMENT: An 86-year-old white female with the following problem list: 1. Toxic metabolic encephalopathy. 2. Severe initial hyponatremia that has improved. 3. Gait instability with functional decline. 4. Medication adjustments with pharmacy assisting. 5. Anemia with iron deficiency. 6. Esophageal ulcers per EGD. 7. Severe irritable bowel syndrome. 8. Chronic back pain. 9. Chronic anxiety and depression. 10. Hypertension. 11. Hypothyroidism. PLAN: The patient is admitted for acute in-hospital inpatient rehabilitation. From a postadmission physician evaluation perspective, there are no relevant changes since the preadmission screening. Please see the above review of prior and current medical and functional conditions and comorbidities. Please see the patient's previous and current functional status. As far as risk of complication, she has the above noted comorbidities. The initial plan of care involves the interdisciplinary acute inpatient rehabilitation team with the goal of maximizing her functional independence so that she can hopefully return back home. Would anticipate length of stay of probably at least 10-14 days and possibly longer if needed. Noted to get her back into the home setting. Potential barriers would include her multiple medical comorbidities and decreased functional status and decreased cognition. <ELECTRONICALLY SIGNED> By: Maurilio Hollis MD 04/08/17 1414 1444 1506 Maurilio Hollis MD /JONY
[~2017-04-04 18:01] MED LIST changes: -ASPIR 8181 M1 PO; -BUSPIRONE HCL10 MG; +CAPOTEN 50MG TA50 MG PO; +OLANZAPINE20 MG PO; +SENNA8.6 MG PO; +ST. JOSEPH ASPI81 MG PO; +SYNTHROID50 MCG PO; -THEREMS-M1 EACH; +THEREMS-M1 EACH PO; -TIZANIDINE HCL2 M1; +TIZANIDINE HCL2 M1 PO; -VITAMIN B12 PO
[2017-04-05] MEDS ORDERED: DURAGESIC1 EACH TRANSDERM (10:09)
[2017-04-05] MEDS ORDERED: PERCOCET PO (10:09)
[2017-04-05] MEDS ORDERED: VITAMIN D5000 UNIT PO (10:09)
[2017-04-05] MEDS ORDERED: PANTOPRAZOLE SO40 M1 PO (10:09)
[2017-04-05] MEDS ORDERED: BUSPIRONE HCL10 MG PO (10:09)
[2017-04-05] MEDS ORDERED: DEMADEX 2020 MG/1 TA PO (10:09)
[2017-04-05] MEDS ORDERED: UNICOMPLEX M TA1 TA1 PO (10:09)
[2017-04-05] MEDS ORDERED: COREG25 MG PO (10:09)
[2017-04-05] MEDS ORDERED: KLOR-CON 10 ER10 MEQ PO (10:09)
[2017-04-05] MEDS ORDERED: TIZANIDINE4 MG/1 TA1 PO (10:09)
[2017-04-05] MEDS ORDERED: ALPRAZOLAM 0.0.25 MG PO (10:09)
[2017-04-05] MEDS ORDERED: LISINOPRIL20 MG PO (10:09)
[2017-04-05] MEDS ORDERED: LIDOPATCH1 EACH TRANSDERM (10:09)
[2017-04-05] MEDS ORDERED: ENOXAPARIN30 MG/0.1 SUBQ (10:09)
[2017-04-05] MEDS ORDERED: TUMS PO (10:18)
[2017-04-05] MEDS ORDERED: MAG-AL PLUS SUS30 ML PO (10:18)
[2017-04-05 11:00] VITALS: BP 113/52
[2017-04-05 22:20] VITALS: BP 121/41
[2017-04-06 06:46] LABS: CALCIUM 8.8 mg/dL (8.5-10.1); CREATININE 1.1 mg/dL (0.6-1.0); POTASSIUM 4.6 mmol/L (3.5-5.1)
[2017-04-06 08:15] VITALS: BP 130/60
[2017-04-06 20:00] VITALS: BP 104/82
[2017-04-07 08:00] VITALS: BP 132/54
[2017-04-07 09:01] LABS: URINE BILIRUBIN NEGATIVE (Negative); URINE BLOOD TRACE (Negative); URINE COLOR YELLOW; URINE GLUCOSE-RANDOM* NEGATIVE (Negative); URINE KETONES NEGATIVE (Negative); URINE PROTEIN (DIPSTICK) TRACE (Negative); URINE SPECIFIC GRAVITY <= 1.005 (1.005-1.035); URINE UROBILINOGEN 0.2 E.U./dl (0.2-1.0)
[2017-04-07 09:04] LABS: URINE LEUKOCYTES-REFLEX 2+ (Negative)
[2017-04-07 09:10] LABS: CASTS None Seen /LPF (None Seen); CRYSTALS None Seen /LPF (None Seen); SQUAMOUS 0-3 Few /LPF (0-3); URINE RBC 0-2 Rare /HPF (0-2); URINE WBC-REFLEX >25 Many /HPF (0-5)
[2017-04-07 19:09] VITALS: BP 105/39; BP 110/57
[2017-04-08 03:37] LABS: CALCIUM 8.8 mg/dL (8.5-10.1); CREATININE 1.5 mg/dL (0.6-1.0); MAGNESIUM 2.4 mg/dL (1.8-2.4); POTASSIUM 5.2 mmol/L (3.5-5.1)
[2017-04-08 07:32] VITALS: BP 146/68
[2017-04-08 19:48] VITALS: BP 109/43
[2017-04-09 06:19] LABS: CREATININE 1.5 mg/dL (0.6-1.0); POTASSIUM 5.1 mmol/L (3.5-5.1)
[2017-04-09 07:30] VITALS: BP 133/49
[2017-04-09 20:01] VITALS: BP 137/42
[2017-04-10 07:04] LABS: CALCIUM 8.9 mg/dL (8.5-10.1); CREATININE 1.5 mg/dL (0.6-1.0); POTASSIUM 4.5 mmol/L (3.5-5.1)
[2017-04-10 08:00] VITALS: BP 133/43
[2017-04-10 20:36] VITALS: BP 121/73
[2017-04-11 06:41] LABS: CALCIUM 8.7 mg/dL (8.5-10.1); CREATININE 1.6 mg/dL (0.6-1.0); POTASSIUM 4.2 mmol/L (3.5-5.1)
[2017-04-11 07:53] VITALS: BP 101/87
[2017-04-11 20:40] VITALS: BP 114/42
[2017-04-12 04:06] LABS: CALCIUM 8.9 mg/dL (8.5-10.1); CREATININE 1.7 mg/dL (0.6-1.0); POTASSIUM 4.6 mmol/L (3.5-5.1)
[2017-04-12 08:40] VITALS: BP 147/59
[2017-04-12 20:11] VITALS: BP 142/48
[2017-04-13 08:00] VITALS: BP 140/62
[2017-04-13 20:04] VITALS: BP 120/76
[2017-04-14 08:00] VITALS: BP 134/85
[2017-04-14 19:18] VITALS: BP 125/43
[2017-04-15 03:50] LABS: ABSOLUTE RETIC COUNT 0.079 10^6/uL; HEMATOCRIT 28.9 % (37.0-47.0); HEMOGLOBIN 9.7 gm/dL (12.0-15.0); MCH 30.7 pg (26.0-34.0); MCHC 33.4 g/dL (28.0-37.0); MCV 91.9 fL (80.0-100.0); OBSERVED RETIC COUNT 2.51 % (0.6-2.6); RBC 3.15 mil/uL (4.20-5.00); RDW 20.5 % (10.5-14.5); WBC 5.9 thou/uL (4.0-11.0)
[2017-04-15 03:54] LABS: CALCIUM 9.2 mg/dL (8.5-10.1); CREATININE 1.7 mg/dL (0.6-1.0); POTASSIUM 4.7 mmol/L (3.5-5.1)
[2017-04-15 08:23] VITALS: BP 155/57
[2017-04-15 10:10] LABS: URINE BILIRUBIN NEGATIVE (Negative); URINE BLOOD NEGATIVE (Negative); URINE COLOR YELLOW; URINE GLUCOSE-RANDOM* NEGATIVE (Negative); URINE KETONES NEGATIVE (Negative); URINE NITRITE NEGATIVE (Negative); URINE PROTEIN (DIPSTICK) NEGATIVE (Negative); URINE UROBILINOGEN 0.2 E.U./dl (0.2-1.0)
[2017-04-15 20:05] VITALS: BP 113/75
[2017-04-16 07:41] VITALS: BP 128/48
[2017-04-16 20:05] VITALS: BP 115/33
[2017-04-17 07:40] VITALS: BP 133/41
[2017-04-17 08:58] VITALS: BP 115/33
[2017-04-17] MEDS ORDERED: CARVEDILOL12.5 MG PO (15:42)
[2017-04-17] MEDS ORDERED: TORSEMIDE10 MG PO (15:44)
[2017-04-17] MEDS ORDERED: FLORANEX GRANU1 EACH PO (15:45)
[2017-04-17] MEDS ORDERED: COLACE 100 MG100 MG PO (15:46)
[2017-04-17] MEDS ORDERED: PREMARIN30 GM VAG (15:48)
[2017-04-17 15:50] VITALS: BP 115/33
[2017-04-20] MEDS ORDERED: OLANZAPINE20 MG PO (12:04)
[2017-04-20] MEDS ORDERED: DURAGESIC1 EACH TRANSDERM (12:05)
[2017-04-20] MEDS ORDERED: LACTULOSE20 GM/30 M PO (14:50)
== END 2017-04-17 18:06 | disposition home health service (06) | DRG 92 ==
LOC: ENTRNSPT 04-17 16:27
PROVIDERS: Internal Medicine; Physical Medicine & Rehabilitation
DX: G92 Toxic encephalopathy (principal); E87.1 Hypo-osmolality and hyponatremia; K92.2 Gastrointestinal hemorrhage, unspecified; N39.0 Urinary tract infection, site not specified; D50.9 Iron deficiency anemia, unspecified; K58.9 Irritable bowel syndrome, unspecified; G89.29 Other chronic pain; M54.9 Dorsalgia, unspecified; F41.9 Anxiety disorder, unspecified; F32.9 Major depressive disorder, single episode, unspecified; I10 Essential (primary) hypertension; M10.9 Gout, unspecified; G43.909 Migraine, unspecified, not intractable, without status migrainosus; Z96.642 Presence of left artificial hip joint; M19.90 Unspecified osteoarthritis, unspecified site; E03.9 Hypothyroidism, unspecified; K44.9 Diaphragmatic hernia without obstruction or gangrene; E78.5 Hyperlipidemia, unspecified; G47.00 Insomnia, unspecified; E55.9 Vitamin D deficiency, unspecified; N32.81 Overactive bladder; R53.81 Other malaise; K20.9 Esophagitis, unspecified; Z79.899 Other long term (current) drug therapy; Z79.82 Long term (current) use of aspirin
CPT/HCPCS: 10112

== ENCOUNTER 2017-05-05 19:34 | Emergency (ER) | payer OTHER ==
[~2017-05-05] VITALS: Ht 167.6 cm; Wt 63.5 kg
[~2017-05-05 19:34] MED LIST changes: +ALPRAZOLAM 0.0.25 MG PO; +COLACE 100 MG100 MG PO; +COREG25 MG PO; +DEMADEX 2020 MG/1 TA PO; +DURAGESIC1 EACH TRANSDERM; +ENOXAPARIN30 MG/0.1 SUBQ; +FLORANEX GRANU1 EACH PO; +KLOR-CON 10 ER10 MEQ PO; +LACTULOSE20 GM/30 M PO; +LIDOPATCH1 EACH TRANSDERM; +LISINOPRIL20 MG PO; +MAG-AL PLUS SUS30 ML PO; +PANTOPRAZOLE SO40 M1 PO; +PERCOCET PO; +PREMARIN30 GM VAG; +TIZANIDINE4 MG/1 TA1 PO; +TORSEMIDE10 MG PO; +TUMS PO; +VITAMIN D5000 UNIT PO
[2017-05-05 20:45] LABS: URINE BILIRUBIN NEGATIVE (Negative); URINE BLOOD NEGATIVE (Negative); URINE CLARITY CLEAR; URINE COLOR YELLOW; URINE GLUCOSE-RANDOM* NEGATIVE (Negative); URINE KETONES NEGATIVE (Negative); URINE LEUKOCYTES 1+ (Negative); URINE NITRITE NEGATIVE (Negative); URINE PROTEIN (DIPSTICK) TRACE (Negative); URINE SPECIFIC GRAVITY <= 1.005 (1.005-1.035); URINE UROBILINOGEN 0.2 E.U./dl (0.2-1.0)
[2017-05-05 20:53] LABS: CASTS None Seen /LPF (None Seen); CRYSTALS None Seen /LPF (None Seen); SQUAMOUS 0-3 Few /LPF (0-3); URINE RBC None Seen /HPF (0-2); URINE WBC 0-5 Rare /HPF (0-5)
[2017-05-05 21:47] LABS: ABSOLUTE NEUTROPHILS 5.9 thou/uL (1.4-8.2); BASOPHILS 0.4 % (0.0-2.0); HEMATOCRIT 37.2 % (37.0-47.0); HEMOGLOBIN 12.6 gm/dL (12.0-15.0); LYMPHOCYTES 14.1 % (24.0-44.0); MCH 31.9 pg (26.0-34.0); MCHC 33.7 g/dL (28.0-37.0); MCV 94.5 fL (80.0-100.0); MONOCYTES 6.5 % (1.0-8.0); PLATELET COUNT 271 thou/uL (150-400); RBC 3.94 mil/uL (4.20-5.00); RDW 17.4 % (10.5-14.5); WBC 7.5 thou/uL (4.0-11.0)
[2017-05-05 21:54] LABS: CALCIUM 9.5 mg/dL (8.5-10.1); CREATININE 1.2 mg/dL (0.6-1.0); POTASSIUM 3.8 mmol/L (3.5-5.1)
[2017-05-05 22:00] LABS: TOTAL BILIRUBIN 0.5 mg/dL (<0.1-1.0); TOTAL PROTEIN 7.1 g/dL (6.4-8.2)
[2017-05-05] MEDS ORDERED: KEFLEX500 M1 PO (23:37)
[2017-05-06 03:28] VITALS: BP 168/90
[2017-05-23] MEDS ORDERED: ASPERCREME76.5 GM TOP (09:48)
[2017-05-23] MEDS ORDERED: PEPCID20 MG PO (09:49)
[2017-05-23] MEDS ORDERED: DURAGESIC1 EACH TOP ×2 (09:54→09:59)
[2017-05-23] MEDS ORDERED: TIZANIDINE4 MG/1 TA1 PO (09:59)
[2017-05-23] MEDS ORDERED: MOVANTIK25 MG PO (09:59)
[2017-05-23] MEDS ORDERED: PERCOCET 5-3251 EACH PO (09:59)
[2017-05-23] MEDS ORDERED: PERCOCET PO (09:59)
[2017-05-23] MEDS ORDERED: DURAGESIC1 EACH TRANSDERM (09:59)
[2017-05-23] MEDS ORDERED: FLORANEX TABLE1 EACH PO (10:31)
[2017-05-23] MEDS ORDERED: XANAX 0.25 MG0.25 MG PO (10:32)
[2017-05-23] MEDS ORDERED: BUSPIRONE HCL15 MG PO (10:34)
[2017-05-23] MEDS ORDERED: VITAMIN D3400 UNIT PO (10:36)
[2017-05-23] MEDS ORDERED: CARVEDILOL12.5 MG PO (10:36)
[2017-05-23] MEDS ORDERED: TUMS PO (10:36)
[2017-05-23] MEDS ORDERED: DEMADEX10 MG PO (10:37)
[2017-05-23] MEDS ORDERED: UNICOMPLEX M TA1 TA1 PO (10:38)
[2017-05-23] MEDS ORDERED: COLACE100 MG PO (10:38)
[2017-09-20] MEDS ORDERED: CITRATE OF MAG296 ML PO (14:58)
== END 2017-05-06 03:30 | disposition home or self-care (01) ==
LOC: ER 19:34
PROVIDERS: Physician Assistant
DX: N39.0 Urinary tract infection, site not specified (principal); K58.9 Irritable bowel syndrome, unspecified; I12.9 Hypertensive chronic kidney disease with stage 1 through stage 4 chronic kidney disease, or unspecified chronic kidney disease; E11.22 Type 2 diabetes mellitus with diabetic chronic kidney disease; N18.9 Chronic kidney disease, unspecified; G43.909 Migraine, unspecified, not intractable, without status migrainosus; F32.9 Major depressive disorder, single episode, unspecified; F03.90 Unspecified dementia, unspecified severity, without behavioral disturbance, psychotic disturbance, mood disturbance, and anxiety; Z96.642 Presence of left artificial hip joint; Z88.8 Allergy status to other drugs, medicaments and biological substances

== ENCOUNTER → 2017-05-23 | Outpatient (CLI) | payer OTHER ==
[~2017-05-23] VITALS: Ht 165.1 cm; Wt 69.4 kg
[~2017-05-23] MED LIST changes: +ASPERCREME76.5 GM TOP; +BENTYL 20 MG TA20 M1 PO; +BUSPIRONE HCL15 MG PO; +CITRATE OF MAG296 ML PO; +COLACE100 MG PO; +DEMADEX10 MG PO; +DURAGESIC1 EACH TOP; +FLORANEX TABLE1 EACH PO; +KEFLEX500 M1 PO; +MOVANTIK25 MG PO; +PEPCID20 MG PO; +VITAMIN D3400 UNIT PO; +XANAX 0.25 MG0.25 MG PO
--- NOTE | ~2017-05-23 | HPC ---
[facility] [place] [address] PAIN MANAGEMENT CONSULTATION Name: DAIVDSARAVANAN DODSON Room #: REG [facility] M.R.#: [id number] Admission: 05/23/17 Attend Phys: Bhaskar Underwood DO Discharge: Date of : 32 Report #: [id number] THIS REPORT FOR: //name// CC: Kelechi Underwood PAIN CLINIC NOTE The patient is an unfortunate 86-year-old female typically treated for lumbar radiculopathy, axial back pain, chronic pain syndrome requiring high risk complex medication management. Last seen in the pain clinic 03/25/2017. In the interval since we saw her, she was admitted to hospital on 04/05/2017 through 04/17/2017 for altered mental status, metabolic encephalopathy, hyponatremia, and generalized debility. She was also seen in the ER on [facility] on 05/05/2017 for ongoing abdominal pain. She returns to the pain clinic today for medication followup. States she is having ongoing low back and bilateral leg pain, feels that the current medication including fentanyl 12 mcg q. 72 hours and Percocet 5/325 t.i.d. is helpful. She complains that her pain is a 4-5 on a VAS. She states she is having ongoing abdominal pain. She states she is having trouble with constipation, though at the end of the visit she actually stated that she was having loose stools (?). Her 2 ER visits for abdominal pain yielded no useful diagnosis. We reviewed the fact that opiate medications are being used to provide analgesia adequate to support activities of daily living, not attempting to achieve a specific pain score on the 0-10 Visual Analog Scale. The current opiate medications are providing sufficient analgesia to allow the patient to participate in activities of daily living. The patient is not exhibiting any aberrant behavior suggestive of drug diversion. The patient is not having any adverse reactions to medications. The patient is not suffering from daytime somnolence or mental acuity changes. The patient is managing opiate-induced constipation with appropriate cffd-uxf-etuwwda agents and dietary considerations. The patient was counseled on concern for caution with operating a motor vehicle while using opiate medications. A physical exam was performed and the patient's functional status was evaluated. All patients with back pain were advised against the bed rest greater than 4 days and were advised to return to normal activities. Pain score assessment was noted and the treatment plan was reviewed with the patient. All current medications, both prescribed and OTC were reviewed and reconciled on the electronic medical record. Tobacco screening was accomplished and smoking cessation was advised when indicated. BMI was noted and diet/exercise modification was recommended for all patients following outside normal parameters. I reviewed with the patient today their responsibilities to [address] [address] PAIN MANAGEMENT CONSULTATION Name: SARAVANAN HERNANDEZ Room #: REG [facility]ell[facility]#: [id number] Admission: 05/23/17 Attend Phys: Bhaskar Underwood DO Discharge: Date of : 32 Report #: [id number] prescription medications, reviewed their responsibility to utilize medications only as prescribed by the physician. They are to seek and receive pain medications only from 1 physician group ([facility]). They are to use 1 pharmacy and keep the clinic informed if they change pharmacies. Their responsibilities include making followup visits in a timely fashion and to avoid abrupt discontinuation of medication usage. Their responsibilities further include bringing their medications (bottles from the pharmacy with residual pills) to the visit for possible confirmation of pill counts and the patient understands it is their responsibility to submit to random drug screens to ensure both that the medications prescribed are present, and that no other controlled substances are present. All prescriptions provided today were generated electronically. PHYSICAL EXAMINATION: Shows an 86-year-old female, BMI is 25.5 kilograms per meter squared. No history of osteo or rheumatoid arthritis. Vital signs are stable. Subjective pain score is 4-5 on a VAS. She uses a walker, has not fallen in the last 3 months. She does have a history of hypertension. Medication list was reconciled. Opiate consent to treat contract was signed on 10/20/2015. Again, physical exam, otherwise unremarkable. Gait remains antalgic, but tandem. There is no nystagmus or lateral gaze deviation. Diffuse abdominal pain though normal borborygmi. No masses noted in the abdomen. No guarding or rebound. ASSESSMENT: Lumbar radiculopathy, chronic axial back pain requiring high risk complex medication management with new diagnosis of abdominal pain. RECOMMENDATIONs: Would like to continue current medication unchanged. I initially gave the patient samples of Movantik to consider though at the end of the visit when she mentioned that she was actually having loose stools rather than constipation, I suggest that she hold off on the Movantik and continue to follow up with her general manager physician for GI evaluation. Discharged in good and stable condition. <ELECTRONICALLY SIGNED> By: Bhaksar Underwood DO 05/26/17 1026 1319 [id number] Bhaskar Underwood DO /nt
[2017-05-23 09:52] VITALS: BP 162/71
== END ==
LOC: PAIN 05-19 07:09
DX: M54.16 Radiculopathy, lumbar region (principal); M54.9 Dorsalgia, unspecified; G89.4 Chronic pain syndrome; R10.9 Unspecified abdominal pain; Z79.899 Other long term (current) drug therapy

== ENCOUNTER → 2017-10-02 | Outpatient (CLI) | payer OTHER ==
[~2017-10-02] VITALS: Ht 162.6 cm; Wt 68.1 kg
[~2017-10-02] MED LIST changes: -BENTYL 20 MG TA20 M1 PO
--- NOTE | ~2017-10-02 | HPC ---
[facility] [place] [address] PAIN MANAGEMENT CONSULTATION Name: SARAVANAN HERNANDEZ Room #: REG [facility] M..#: [id number] Admission: 10/02/17 Attend Phys: Bhaskar Underwood DO Discharge: Date of : 32 Report #: [id number] THIS REPORT FOR: //name// CC: Kelechi Underwood DATE OF SERVICE: 10/02/2017 The patient is an 86-year-old female who had long been treated for lumbar radiculopathy, axial back pain requiring complex medication management. She was last seen back in April. Somewhat lost to follow up. She had prior been admitted to the hospital for altered mental status, metabolic encephalopathy, hyponatremia, generalized debility. When I saw her, she was doing reasonably well using a low dose fentanyl at 12 mcg with rare Percocet 5/325 up to t.i.d. Drug screen accomplished at that time was negative for fentanyl, though she was wearing a patch, this is not unusual. Was positive for Xanax and oxycodone. It was negative for ethanol and ethanol tablets at that time. She was having some issue with alternating loose stools and constipation. We talked about a stool softener and Movantik if needed. Incidentally, prior epidural injection L5-S1 midline in 12/2016 had afforded good relief (greater than 60%) for several months. The patient presents to pain clinic today noting pain continues to be problematic in the low back radiating bilateral legs, posterior aspects, she rates an 8 on a VAS, exacerbated with walking. She describes the acute sharp burning sensation. She denies myelopathic symptoms, no bowel or bladder continence changes or saddle anesthesia. PHYSICAL EXAMINATION: Shows 86-year-old female, BMI is 25.8 kilograms per meter squared. Blood pressure 152/77, pulse 62, respirations 20, room air oxygen is 90%. She is a little befuddled and suffering from some ongoing dementia. She rises from chair hesitantly using the armrest, somewhat antalgic gait. She does use a walker when outside of her dwelling. She has an antalgic gait, positive straight leg raise bilaterally. Diffuse tenderness across the low back. No discrete trigger points noted. ASSESSMENT: Symptomatic lumbar radiculopathy by clinical exam and history with positive neural tensioning symptoms. She presented to the ER 09/10/2017 with ongoing low back pain. Reviewed x-rays from that time, which do show degenerative changes throughout the lumbar spine, [address] [address] PAIN MANAGEMENT CONSULTATION Name: SARAVANAN HERNANDEZ [facility] [id number] Admission: 10/02/17 Attend Phys: Bhaskar Underwood DO Discharge: Date of : 32 Report #: [id number] but no acute changes from a prior 05/2014 study. Does have some chronic vertebral compression fractures T12, L1 and L2. ASSESSMENT: Symptomatic lumbar radiculopathy. RECOMMENDATION: Epidural injection under fluoroscopy today. I did take time today to contact Dr. Kelechi [place]. We talked about continuing the patient on Duragesic 12 mcg q.72h. Unfortunately, inspection of her room had apparently noted some random pills and bottle of alcohol. The patient has struggled with ethanol issues in the past. I agree with Dr. [place] that the patient may require tighter control regarding medication distribution. PROCEDURE: Lumbar epidural injection under fluoroscopy. PROCEDURE NOTE: After both written and informed consent to include risk of spinal cord damage, increased pain, weakness and dural puncture, the patient was taken to the fluoroscopy suite, placed in the prone position. After sterile prep and drape, a skin wheal with lidocaine was raised. A 22-gauge epidural Tuohy needle was inserted in the midline at L5-S1 with good loss to resistance. Negative aspiration for cerebrospinal fluid or blood was noted. Then 1 mL of Omnipaque under biplanar fluoroscopy showed good spread within the epidural space. This was followed with 80 mg of triamcinolone plus 1 mL of 1.5% preservative-free Xylocaine, 0.5 mL Xylocaine was then injected to flush the needle; it was removed. The patient was monitored for an appropriate period of time and discharged in good and stable condition. <ELECTRONICALLY SIGNED> By: Bhaskar Underwood DO 10/03/17 0727 1230 1639 Bhaskar Underwood DO /nt
[2017-10-02 09:51] VITALS: BP 152/77
== END | disposition home or self-care (01) ==
LOC: PAIN 09-18 07:19
DX: M54.16 Radiculopathy, lumbar region (principal); G89.29 Other chronic pain; I12.9 Hypertensive chronic kidney disease with stage 1 through stage 4 chronic kidney disease, or unspecified chronic kidney disease; N18.9 Chronic kidney disease, unspecified; G43.909 Migraine, unspecified, not intractable, without status migrainosus; Z87.19 Personal history of other diseases of the digestive system; Z87.440 Personal history of urinary (tract) infections; Z79.891 Long term (current) use of opiate analgesic; Z98.890 Other specified postprocedural states; Z79.899 Other long term (current) drug therapy; Z88.8 Allergy status to other drugs, medicaments and biological substances

== ENCOUNTER 2017-10-17 20:03 | Emergency (ER) | payer OTHER ==
[~2017-10-17] VITALS: Ht 165.1 cm; Wt 68.0 kg
[2017-10-17 20:48] LABS: ABSOLUTE NEUTROPHILS 6.8 thou/uL (1.4-8.2); BASOPHILS 0.5 % (0.0-2.0); EOSINOPHILS 0.2 % (0.0-3.0); HEMATOCRIT 34.3 % (37.0-47.0); HEMOGLOBIN 12.3 gm/dL (12.0-15.0); LYMPHOCYTES 11.7 % (24.0-44.0); MCHC 35.8 g/dL (28.0-37.0); MCV 94.9 fL (80.0-100.0); PLATELET COUNT 274 thou/uL (150-400); POLYS 78.6 % (36.0-66.0); RBC 3.61 mil/uL (4.20-5.00); RDW 12.5 % (10.5-14.5); WBC 8.6 thou/uL (4.0-11.0)
[2017-10-17 20:56] LABS: CALCIUM 8.9 mg/dL (8.5-10.1); POTASSIUM 4.6 mmol/L (3.5-5.1)
[2017-10-17 21:01] LABS: URINE BILIRUBIN NEGATIVE (Negative); URINE BLOOD NEGATIVE (Negative); URINE CLARITY CLEAR; URINE COLOR YELLOW; URINE GLUCOSE-RANDOM* NEGATIVE (Negative); URINE KETONES NEGATIVE (Negative); URINE NITRITE-REFLEX NEGATIVE (Negative); URINE PROTEIN (DIPSTICK) NEGATIVE (Negative); URINE SPECIFIC GRAVITY <= 1.005 (1.005-1.035); URINE UROBILINOGEN 0.2 E.U./dl (0.2-1.0)
[2017-10-17 21:02] LABS: URINE LEUKOCYTES-REFLEX TRACE (Negative)
[2017-10-17] MEDS ORDERED: BENTYL 20 MG TA20 M1 PO (21:52)
== END 2017-10-17 22:27 | disposition home or self-care (01) ==
LOC: ER 20:03
PROVIDERS: Emergency Medicine
DX: R10.9 Unspecified abdominal pain (principal); M54.5 Low back pain; K59.00 Constipation, unspecified; F11.10 Opioid abuse, uncomplicated; I10 Essential (primary) hypertension; G43.909 Migraine, unspecified, not intractable, without status migrainosus; F32.9 Major depressive disorder, single episode, unspecified; F03.90 Unspecified dementia, unspecified severity, without behavioral disturbance, psychotic disturbance, mood disturbance, and anxiety; E11.9 Type 2 diabetes mellitus without complications; Z96.642 Presence of left artificial hip joint

== ENCOUNTER 2017-10-27 15:39 | Emergency (ER) | payer OTHER ==
[~2017-10-27] VITALS: Ht 165.1 cm; Wt 68.0 kg
--- NOTE | ~2017-10-27 | EKG ---
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: ARMINDA : 1930 Requested By: Patricia Alicea Order Number: [id number] MD: Chele Melgar Measurements Intervals [place] Rate: 61 P: 50 RI: 194 QRS: 9 QRSD: 103 T: 47 QT: 418 QTc: 421 Interpretive Statements Sinus rhythm No significant abnormality Compared to ECG 04/05/2017 06:00:04 No significant change was found Electronically Signed On 10-27-2017 17:17:11 CDT by Chele Melgar [email or web address] <ELECTRONICALLY SIGNED> By: Chele Melgar MD, [facility] 10/27/17 1717 1612 1612 Chele Melgar MD, FACC /EPI
[~2017-10-27 15:39] MED LIST changes: +BENTYL 20 MG TA20 M1 PO
[2017-10-27 16:06] LABS: ABSOLUTE NEUTROPHILS 5.3 thou/uL (1.4-8.2); BASOPHILS 0.8 % (0.0-2.0); EOSINOPHILS 0.4 % (0.0-3.0); HEMATOCRIT 32.5 % (37.0-47.0); HEMOGLOBIN 11.9 gm/dL (12.0-15.0); LYMPHOCYTES 12.1 % (24.0-44.0); MCH 34.3 pg (26.0-34.0); MCHC 36.7 g/dL (28.0-37.0); MCV 93.6 fL (80.0-100.0); MONOCYTES 10.7 % (1.0-8.0); PLATELET COUNT 312 thou/uL (150-400); RBC 3.48 mil/uL (4.20-5.00); RDW 13.1 % (10.5-14.5)
[2017-10-27 16:13] LABS: ANION GAP 8 mmol/L (7-16); BUN 14 mg/dL (7-18); CHLORIDE 94 mmol/L (98-107); CO2 25 mmol/L (21-32); GLUCOSE 131 mg/dL (74-106); POTASSIUM 3.3 mmol/L (3.5-5.1); SODIUM 127 mmol/L (136-145)
[2017-10-27 16:22] LABS: ALBUMIN 3.6 g/dL (3.4-5.0); LIPASE 246 U/L (73-393); SGOT 17 U/L (15-37); SGPT 23 U/L (30-65); TOTAL BILIRUBIN 0.4 mg/dL (<0.1-1.0); TOTAL PROTEIN 6.6 g/dL (6.4-8.2); TROPONIN-I <0.06 ng/mL (<0.06)
[2017-10-27 17:02] LABS: URINE BILIRUBIN NEGATIVE (Negative); URINE BLOOD NEGATIVE (Negative); URINE CLARITY CLEAR; URINE COLOR YELLOW; URINE GLUCOSE-RANDOM* NEGATIVE (Negative); URINE KETONES NEGATIVE (Negative); URINE NITRITE-REFLEX NEGATIVE (Negative); URINE PROTEIN (DIPSTICK) TRACE (Negative); URINE SPECIFIC GRAVITY <= 1.005 (1.005-1.035); URINE UROBILINOGEN 0.2 E.U./dl (0.2-1.0)
[2017-10-27 17:05] LABS: URINE LEUKOCYTES-REFLEX 2+ (Negative)
[2017-10-27 17:16] LABS: BACTERIA-REFLEX >30 Many /HPF (None Seen); CASTS None Seen /LPF (None Seen); CRYSTALS None Seen /LPF (None Seen); SQUAMOUS 0-3 Few /LPF (0-3); URINE RBC None Seen /HPF (0-2); URINE WBC-REFLEX 0-5 Rare /HPF (0-5)
== END 2017-10-27 19:20 | disposition home or self-care (01) ==
LOC: ER 15:39
PROVIDERS: Physician Assistant
DX: R10.30 Lower abdominal pain, unspecified (principal); R19.7 Diarrhea, unspecified; E87.6 Hypokalemia; E87.1 Hypo-osmolality and hyponatremia; M79.604 Pain in right leg; M79.605 Pain in left leg; I10 Essential (primary) hypertension; E11.9 Type 2 diabetes mellitus without complications; G43.909 Migraine, unspecified, not intractable, without status migrainosus; F32.9 Major depressive disorder, single episode, unspecified; Z88.8 Allergy status to other drugs, medicaments and biological substances

== ENCOUNTER 2017-11-21 12:58 | Emergency (ER) | payer OTHER ==
[~2017-11-21] VITALS: Ht 165.1 cm; Wt 68.0 kg
[2017-11-21 16:27] LABS: URINE BILIRUBIN NEGATIVE (Negative); URINE BLOOD NEGATIVE (Negative); URINE CLARITY CLEAR; URINE COLOR YELLOW; URINE GLUCOSE-RANDOM* NEGATIVE (Negative); URINE KETONES NEGATIVE (Negative); URINE LEUKOCYTES-REFLEX 1+ (Negative); URINE NITRITE-REFLEX NEGATIVE (Negative); URINE PROTEIN (DIPSTICK) TRACE (Negative); URINE UROBILINOGEN 0.2 E.U./dl (0.2-1.0)
[2017-11-21 16:45] LABS: BACTERIA-REFLEX None Seen /HPF (None Seen); CASTS None Seen /LPF (None Seen); CRYSTALS None Seen /LPF (None Seen); SQUAMOUS 0-3 Few /LPF (0-3); URINE RBC 0-2 Rare /HPF (0-2); URINE WBC-REFLEX 0-5 Rare /HPF (0-5)
== END 2017-11-21 18:06 | disposition home or self-care (01) ==
LOC: ER 12:58
PROVIDERS: Physician Assistant
DX: M54.5 Low back pain (principal); G89.29 Other chronic pain; I10 Essential (primary) hypertension; E11.9 Type 2 diabetes mellitus without complications; G43.909 Migraine, unspecified, not intractable, without status migrainosus; F32.9 Major depressive disorder, single episode, unspecified; F03.90 Unspecified dementia, unspecified severity, without behavioral disturbance, psychotic disturbance, mood disturbance, and anxiety; Z96.642 Presence of left artificial hip joint; Z88.8 Allergy status to other drugs, medicaments and biological substances; Z86.010 Personal history of colon polyps

== ENCOUNTER 2018-02-22 18:15 | Emergency (ER) | payer OTHER ==
[~2018-02-22] VITALS: Ht 162.6 cm; Wt 61.2 kg
--- NOTE | ~2018-02-22 | EKG ---
[address] [place] [address] ELECTROCARDIOGRAM REPORT Name: SARAVANAN HERNANDEZ Room #: DEP [facility]#: [id number] Admission: 02/22/18 Attend Phys: Discharge: 02/22/18 Date of : 32 Report #: [id number] THIS REPORT FOR: //name// [facility] ED Test Date: 2018-02-22 Test Time: 18:51:25 Pat Name: SARAVANAN HERNANDEZ Department: Room: Gender: F Snuff Maker: huey : 1930 Requested By: Gallito Calvillo Order Number: [id number] MD: Chele Melgar Measurements Intervals [place] Rate: 59 P: 31 VA: 163 QRS: 15 QRSD: 95 T: 41 QT: 404 QTc: 401 Interpretive Statements Sinus bradycardia Otherwise no significant abnormality Baseline wander in lead(s) II,aVF,V6 Compared to ECG 10/27/2017 16:12:27 No significant change was found Electronically Signed On 02-23-2018 9:25:09 CDT by Chele Melgar [email or web address] <ELECTRONICALLY SIGNED> By: Chele Melgar MD, [facility] 02/23/18 0925 185 50 Chele Melgar MD, [facility] /EPI
[2018-02-22 19:44] LABS: ABSOLUTE NEUTROPHILS 4.9 thou/uL (1.4-8.2); BASOPHILS 0.4 % (0.0-2.0); EOSINOPHILS 0.1 % (0.0-3.0); HEMATOCRIT 36.7 % (37.0-47.0); HEMOGLOBIN 12.7 gm/dL (12.0-15.0); LYMPHOCYTES 16.9 % (24.0-44.0); MCH 33.7 pg (26.0-34.0); MCHC 34.8 g/dL (28.0-37.0); MCV 96.9 fL (80.0-100.0); MONOCYTES 11.8 % (1.0-8.0); PLATELET COUNT 284 thou/uL (150-400); POLYS 70.8 % (36.0-66.0); RBC 3.78 mil/uL (4.20-5.00); RDW 12.7 % (10.5-14.5)
[2018-02-22 19:48] LABS: ANION GAP 8 mmol/L (7-16); BUN 18 mg/dL (7-18); CALCIUM 9.8 mg/dL (8.5-10.1); CHLORIDE 98 mmol/L (98-107); CO2 27 mmol/L (21-32); CREATININE 1.2 mg/dL (0.6-1.0); GLUCOSE 116 mg/dL (74-106); POTASSIUM 4.5 mmol/L (3.5-5.1); SODIUM 133 mmol/L (136-145)
[2018-02-22 20:02] LABS: ALBUMIN 3.7 g/dL (3.4-5.0); LIPASE 207 U/L (73-393); SGOT 16 U/L (15-37); SGPT 18 U/L (30-65); TOTAL BILIRUBIN 0.5 mg/dL (<0.1-1.0); TROPONIN-I <0.06 ng/mL (<0.06)
== END 2018-02-22 21:23 | disposition home or self-care (01) ==
LOC: ER 18:15
PROVIDERS: Emergency Medicine
DX: R10.30 Lower abdominal pain, unspecified (principal); R11.0 Nausea; K51.90 Ulcerative colitis, unspecified, without complications; G89.29 Other chronic pain; I10 Essential (primary) hypertension; E11.9 Type 2 diabetes mellitus without complications; G43.909 Migraine, unspecified, not intractable, without status migrainosus; F03.90 Unspecified dementia, unspecified severity, without behavioral disturbance, psychotic disturbance, mood disturbance, and anxiety; Z88.8 Allergy status to other drugs, medicaments and biological substances; Z96.642 Presence of left artificial hip joint

== ENCOUNTER 2018-10-03 12:56 | Emergency (ER) | payer OTHER ==
[~2018-10-03] VITALS: Ht 165.1 cm; Wt 78.9 kg
[2018-10-03 16:15] VITALS: BP 141/46
== END 2018-10-03 16:15 | disposition home or self-care (01) ==
LOC: ER 12:56
DX: G89.29 Other chronic pain (principal); M54.5 Low back pain; I10 Essential (primary) hypertension; E11.9 Type 2 diabetes mellitus without complications; G43.909 Migraine, unspecified, not intractable, without status migrainosus; F03.90 Unspecified dementia, unspecified severity, without behavioral disturbance, psychotic disturbance, mood disturbance, and anxiety; Z96.642 Presence of left artificial hip joint; Z88.8 Allergy status to other drugs, medicaments and biological substances; Z79.899 Other long term (current) drug therapy

== ENCOUNTER 2018-10-18 07:09 | Emergency (ER) | payer OTHER ==
[~2018-10-18] VITALS: Ht 162.6 cm; Wt 97.5 kg
[~2018-10-18 07:09] MED LIST changes: +AMLODIPINE BESY10 MG PO; +CONSTULOSE10 GM/15 M PO; +CYMBALTA20 MG PO; +DULCOLAX5 MG PO; +KLOR-CON 1010 MEQ PO; +LISINOPRIL10 MG PO; +NORCO 5-325 TA1 EAC1 PO
[2018-10-18 08:04] VITALS: BP 132/43
== END 2018-10-18 09:04 | disposition home or self-care (01) ==
LOC: ER 07:09
DX: M54.5 Low back pain (principal); G89.29 Other chronic pain; I10 Essential (primary) hypertension; E11.9 Type 2 diabetes mellitus without complications; K58.9 Irritable bowel syndrome, unspecified; G43.909 Migraine, unspecified, not intractable, without status migrainosus; F32.9 Major depressive disorder, single episode, unspecified; F03.90 Unspecified dementia, unspecified severity, without behavioral disturbance, psychotic disturbance, mood disturbance, and anxiety; Z88.8 Allergy status to other drugs, medicaments and biological substances; Z96.642 Presence of left artificial hip joint

== ENCOUNTER 2018-10-19 13:47 | Emergency (ER) | payer OTHER ==
[~2018-10-19] VITALS: Ht 162.6 cm; Wt 97.1 kg
[2018-10-19 15:14] LABS: HEMOGLOBIN 9.2 gm/dL (12.0-15.0); MCH 29.2 pg (26.0-34.0); MCV 88.4 fL (80.0-100.0); PLATELET COUNT 285 thou/uL (150-400); RBC 3.16 mil/uL (4.20-5.00); RDW 14.1 % (10.5-14.5); WBC 12.5 thou/uL (4.0-11.0)
[2018-10-19 15:24] LABS: ANION GAP 11 mmol/L (7-16); BUN 38 mg/dL (7-18); CALCIUM 9.1 mg/dL (8.5-10.1); CHLORIDE 99 mmol/L (98-107); CO2 27 mmol/L (21-32); CREATININE 1.7 mg/dL (0.6-1.0); GLUCOSE 107 mg/dL (74-106); POTASSIUM 4.5 mmol/L (3.5-5.1); SODIUM 137 mmol/L (136-145)
[2018-10-19 15:34] LABS: ALBUMIN 3.6 g/dL (3.4-5.0); SGOT 26 U/L (15-37); SGPT 23 U/L (30-65); TOTAL BILIRUBIN 0.7 mg/dL (<0.1-1.0); TOTAL PROTEIN 7.4 g/dL (6.4-8.2); TROPONIN-I <0.06 ng/mL (<0.06)
[2018-10-19 16:23] LABS: URINE BILIRUBIN NEGATIVE (Negative); URINE BLOOD 2+ (Negative); URINE CLARITY CLEAR; URINE COLOR YELLOW; URINE GLUCOSE-RANDOM* NEGATIVE (Negative); URINE KETONES NEGATIVE (Negative); URINE LEUKOCYTES-REFLEX TRACE (Negative); URINE NITRITE-REFLEX NEGATIVE (Negative); URINE PROTEIN (DIPSTICK) NEGATIVE (Negative); URINE SPECIFIC GRAVITY <= 1.005 (1.005-1.035); URINE UROBILINOGEN 0.2 E.U./dl (0.2-1.0)
[2018-10-19 16:39] LABS: SQUAMOUS 0-3 Few /LPF (0-3)
[2018-10-19 16:40] LABS: BACTERIA-REFLEX 1-9 Few /HPF (None Seen); CASTS None Seen /LPF (None Seen); CRYSTALS None Seen /LPF (None Seen); URINE RBC 0-2 Rare /HPF (0-2); URINE WBC-REFLEX 0-5 Rare /HPF (0-5)
[2018-10-19 18:40] VITALS: BP 124/92
--- NOTE | 2018-10-21 07:34 | EKG ---
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: RUDDY : 1930 Requested By: Patricia Alicea Order Number: [id number] MD: Chele Melgar Measurements Intervals [place] Rate: 60 P: NE: QRS: 17 QRSD: 122 T: 49 QT: 449 QTc: 449 Interpretive Statements Sinus rhythm No significant abnormality Compared to ECG 02/22/2018 18:51:25 Sinus bradycardia no longer present Electronically Signed On 10-21-2018 7:34:19 CDT by Chele Melgar [email or web address] ��������������������������������������������� <ELECTRONICALLY SIGNED> ���������������������������������������� By: Chele Melgar MD, [facility] ��������������������������������������������� 10/21/18 0734 1425 1425 Chele Melgar MD, FACC /EPI
== END 2018-10-19 17:23 | disposition home or self-care (01) ==
LOC: ER 13:47
PROVIDERS: Physician Assistant
DX: S09.8XXA Other specified injuries of head, initial encounter (principal); G89.29 Other chronic pain; M54.5 Low back pain; I10 Essential (primary) hypertension; E11.9 Type 2 diabetes mellitus without complications; K58.9 Irritable bowel syndrome, unspecified; G43.909 Migraine, unspecified, not intractable, without status migrainosus; F32.9 Major depressive disorder, single episode, unspecified; F03.90 Unspecified dementia, unspecified severity, without behavioral disturbance, psychotic disturbance, mood disturbance, and anxiety; Z88.8 Allergy status to other drugs, medicaments and biological substances; W18.39XA Other fall on same level, initial encounter; Y93.89 Activity, other specified; Y92.89 Other specified places as the place of occurrence of the external cause; Y99.8 Other external cause status

== ENCOUNTER 2018-10-21 14:41 | Inpatient (IN) | payer OTHER ==
[~2018-10-21] VITALS: Ht 165.1 cm; Wt 80.6 kg
--- NOTE | ~2018-10-21 | HC ---
[facility] [place] [address] CONSULTATION Name: SARAVANAN HERNANDEZ Room #: 428-P [facility] IN M.R.#: [id number] Admission: 10/21/18 ������������������ Attend Phys: Kelechi Austin MD Discharge: 11/03/18 ������������������ Date of : 32 Report #: [id number] THIS REPORT FOR: //name// CC: Kelechi Austin DATE OF SERVICE: 11/03/2018 HISTORY OF PRESENT ILLNESS: The patient is an 88-year-old white female who was admitted with recurrent falls. These were thought to be syncopal. She was noted to have anemia with heme-positive stools. Iron replacement was started. 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 Colonoscopy recommended, but the patient refused with her durable power of business development assistant ascending to her wishes in this regard. She also was noted to have hyponatremia, suggesting prerenal cause. She was placed on a fluid restriction. She has some chronic left lower extremity, hip pain with x-ray revealing any acute changes. She has had prior recommendation from Orthopedics for a hip revision, but she has refused this. She has had prior surgeries. She has generalized weakness and debilitation. We are seeing her in rehabilitation medicine consultation. PAST MEDICAL HISTORY: Delineated above. She has a history also of hypertension, GERD, recurrent falls, hypothyroidism, irritable bowel syndrome, diabetes mellitus, history of GI bleed, chronic back pain, and dementia. PAST SURGICAL HISTORY: Includes total hip replacement, tibia fracture repair. ALLERGIES: HYDROCHLOROTHIAZIDE. MEDICATIONS: Please see the full medication listing. This includes vitamins, herbals, and supplements. SOCIAL HISTORY: Lives at [facility]. She was living alone in her assisted living apartment utilized a front-wheeled walker. REVIEW OF SYSTEMS: Did not offer any current complaints of chest pain, shortness of breath or abdominal discomfort. PHYSICAL EXAMINATION: GENERAL: An 88-year-old female in no obvious distress. VITAL SIGNS: Temperature 36.5, pulse 66, respirations 17, blood pressure 158/59. NEUROLOGIC: The patient is alert. HEENT: Appeared to be benign. Facies are symmetric. EXTREMITIES: Functional range of motion of both upper extremities. Strength is grade 4-/5. DTRs are trace to 1. Lower extremities functional range of motion [address] [address] CONSULTATION Name: SARAVANAN HERNANDEZ Room #: 428-P [facility] IN .R.#: [id number] Admission: 10/21/18 ������������������ Attend Phys: Kelechi Austin MD Discharge: 11/03/18 ������������������ Date of : 32 Report #: [id number] is grade 3+ to 4-/5. DTRs are trace to 1. She was able to sit to stand with min assist. Gait was 30 feet min assist with a front-wheeled walker. She does have [id number]-vg-[id number] cognitive and memory deficits. Lower extremity dressing is max assist. ASSESSMENT: An 88-year-old white female with the following problem list: 1. Recurrent falls. 2. Abnormal gait. 3. Hyponatremia. 4. Paroxysmal atrial fibrillation with rapid ventricular rate. 5. Anemia with iron deficiency. 6. Chronic kidney disease. 7. Gastroesophageal reflux disease. 8. History of chronic back pain. 9. History of mild peripheral neuropathy. 10. Prior hip replacement surgeries. PLAN: Would agree with a alf facility as most appropriate for this patient as discussed. Thank you for asking us to assist in this patient's care. ��������������������������������������������� ���������������������������������������� By: ��������������������������������������������� 0959 07 Maurilio Hollis MD /nt
--- NOTE | 2018-10-21 16:06 | H ---
[facility] [place] [address] HISTORY AND PHYSICAL Name: SARAVANAN HERNANDEZ Room #: 364-P ADM IN M.R.#: [id number] Admission: 10/21/18 ������������������ Attend Phys: Kelechi Austin MD Discharge: ������������������ Date of : 32 Report #: [id number] THIS REPORT FOR: //name// CC: Kelechi Austin [facility] DATE OF SERVICE: 10/21/2018 CHIEF COMPLAINT: "I don't know what happened, but I fell." HISTORY OF PRESENT ILLNESS: The patient is an 88-year-old female who resides at [facility]. In the last 3 days, she has been falling down and has done so at least 4 times. The last such fall was this morning. She was in the bathroom and had gotten up from the commode after relieving herself and does not recall what happened next until someone found her lying on the floor "about 30 minutes later." Her fall was not observed but at the time of her being found, she stood up by staff and placed in a chair. Her blood pressure was 78/43 at that time. The rest of her vitals were stable and she was put to bed. Her blood pressure improved with that. I saw her this afternoon where she was still in bed and she was otherwise unchanged. She did have one change that was noted after the fall. She had some slurring of speech that was not present during my exam, although her voice was somewhat coarse. She denies fever, chills or sweats. She states that she has been eating fairly normally lately. She does have generalized aches and pains but in my experience with her for the last several years, this is always the case. PAST MEDICAL HISTORY: Extensive and includes major depression, severe irritable bowel disease, constipation predominant, hypertension, orthostatic hypotension, hypothyroidism, generalized anxiety and back pain. She also has chronic left hip pain and has had a hip replacement surgery and a revision, which apparently also failed as she was recommended to have yet another surgery there in the last several years by her orthopedic surgeon. She has a very remote history of alcohol abuse, but none at least in the last year or 2. She has a history of type 2 diabetes that is diet controlled. She has had a polyp in her colon removed that was benign. She was admitted with a GI bleed and had tarry stools in June of this year. MEDICATIONS AT TIME OF ADMISSION: Include amlodipine, pantoprazole, MiraLax, BuSpar, carvedilol, torsemide, lactulose p.r.n., potassium chloride, lisinopril, duloxetine, bisacodyl, levothyroxine, Lamictal, olanzapine, alprazolam, calcium carbonate, and multivitamin. ALLERGIES: SHE HAS ALLERGIES TO HYDROCHLOROTHIAZIDE (IT GAVE HER SEVERE HYPONATREMIA). FAMILY HISTORY: Significant for coronary artery disease in [address] [address] HISTORY AND PHYSICAL Name: SARAVANAN HERNANDEZ Room #: 364-P [facility] IN M.R.#: [id number] Admission: 10/21/18 ������������������ Attend Phys: Kelechi Austin MD Discharge: ������������������ Date of : 32 Report #: [id number] members. No cancer history. SOCIAL HISTORY: The patient is and lives at [facility] for about the last 3 or 4 years. She has recently lost a pet cat of 17 years to which she was quite attached. She has not been drinking alcohol in the last several years, although previously reportedly drank heavily. She is a nonsmoker and she does not use or abuse street drugs. She likes to remain active and uses her roller walker to go out walking frequently and is generally able to get herself up out of bed and take herself to activities and meals at the facility, communal dining area. REVIEW OF SYSTEMS: No headaches, no change in vision. No difficulty swallowing. No hearing loss. No vision changes. No pain in her neck. She does have chronic low back pain, chronic pain in both lower extremities, especially the left hip. No abdominal pain at this time. States that she feels like she could have a bowel movement today, but has not had them in a couple of days. It is noteworthy that her historical abilities are moderately limited and not always reliable. No shortness of breath or chest pain throughout any of this. The patient recalls her last fall, but is not so certain of the details about previous falls. She does not know whether she passed out or not. PHYSICAL EXAMINATION: VITAL SIGNS: Pulse was 64 per minute supine when I examined her and her blood pressure was 78/43 earlier when she was in the sitting position, I did not recheck her blood pressure. Also, I am told that en route to the hospital, her oxygen saturation was 77% in the ambulance. I have not confirmed that last reading, but the patient did not appear to be in any respiratory distress when I saw her prior to admission. GENERAL: The patient is a pleasant, somewhat scared looking elderly white female, in mild distress from her anxiety. HEENT: The extraocular muscles are intact. Oropharynx is very dry and pink. No lesions, no exudates. NECK: Supple. There is no adenopathy or thyromegaly or mass or significant bruit. LUNGS: Clear bilaterally. CARDIAC: Reveals a regular rhythm with 1-2/6 systolic ejection murmur, unchanged from baseline, and occasional extrasystole. ABDOMEN: Soft. Bowel sounds are present. No visceromegaly or masses or tenderness noted on exam today. EXTREMITIES: Without cyanosis or clubbing or peripheral edema. Peripheral pulses are all easily palpated in all 4 distal extremities when the patient is supine. I did not stand her up for exam. NEUROLOGIC: Her slurred speech that was noted earlier has resolved, although the patient's voice is still rather coarse presumably from a dry throat. No focal deficits of cranial nerves 2-12 were otherwise noted. She has good strength in both upper extremities. She has good strength in both lower [address] [address] HISTORY AND PHYSICAL Name: SARAVANAN HERNANDEZ Room #: 364-P [facility] IN ..#: [id number] Admission: 10/21/18 ������������������ Attend Phys: Kelechi Austin MD Discharge: ������������������ Date of : 32 Report #: [id number] extremities. Again, gait was not tested. She was supine only. No focal deficits were seen. Deep tendon reflexes were not reassessed. There was no Babinski sign on either side. ASSESSMENT AND PLAN: 1. Recurrent falls with suspected syncopal episodes, unwitnessed - it is quite era to this point that the patient has not suffered any fractures apparently. Nonetheless, we do not have a good explanation for her falls or her suddenly lowered blood pressure, but we will be discontinuing all of her antihypertensive meds at this time and limiting her use of alprazolam when able. We will get an echocardiogram to assess her cardiac function. We will check cardiac enzymes, but I am unable to obtain anything that sounds like a coronary history. She has had multiple negative cardiac workups in the past all this is negative. 2. Anxiety and depression. 3. Hypothyroidism. We will check TSH. 4. Dementia. 5. Gastroesophageal reflux disease. Please note we will start the patient on intravenous hydration therapy as well so that we can get her rehydrated during this workup. ��������������������������������������������� <ELECTRONICALLY SIGNED> ���������������������������������������� By: Kelechi Austin MD ��������������������������������������������� 10/21/18 1606 1502 1603 Kelechi Austin MD /nt
--- NOTE | 2018-10-21 16:54 | NUR ---
[age]LD FEMALE ADMITTED TO [address] RO[address] 364 UNDER THE CARE OF DR CHOI. PT WAS BROUGHT IN PER EMS FROM [facility] THIS AFTERNOON AFTER FREQUENT FALL IN THE LAST FEW DAYS AND SLURRED SPEECH. PT IS ALERT AND ORIENTED TIMES FOUR. VSS, 98%2L, SR ON TELE, IVF INFUSING PER ORDER. PT DENIES PAIN/SOA. PT UP TO THE CHAIR WITH ASSIT OF ONE. WILL CONTINUE TO MONITOR.
[2018-10-21 17:01] LABS: CALCIUM 8.8 mg/dL (8.5-10.1); CREATININE 1.8 mg/dL (0.6-1.0); POTASSIUM 4.9 mmol/L (3.5-5.1)
[2018-10-21 17:07] LABS: ALBUMIN 3.5 g/dL (3.4-5.0); TOTAL BILIRUBIN 0.4 mg/dL (<0.1-1.0); TOTAL PROTEIN 7.4 g/dL (6.4-8.2)
[2018-10-21 17:16] LABS: HEMATOCRIT 28.6 % (37.0-47.0); HEMOGLOBIN 9.2 gm/dL (12.0-15.0); MCH 29.4 pg (26.0-34.0); MCHC 32.3 g/dL (28.0-37.0); MCV 91.2 fL (80.0-100.0); RBC 3.14 mil/uL (4.20-5.00); RDW 14.6 % (10.5-14.5); WBC 7.5 thou/uL (4.0-11.0)
[2018-10-21 20:30] VITALS: BP 137/56
[2018-10-21 22:33] LABS: URINE BILIRUBIN NEGATIVE (Negative); URINE BLOOD NEGATIVE (Negative); URINE CLARITY CLEAR; URINE COLOR YELLOW; URINE GLUCOSE-RANDOM* NEGATIVE (Negative); URINE KETONES NEGATIVE (Negative); URINE LEUKOCYTES-REFLEX 1+ (Negative); URINE NITRITE-REFLEX NEGATIVE (Negative); URINE PROTEIN (DIPSTICK) NEGATIVE (Negative); URINE UROBILINOGEN 0.2 E.U./dl (0.2-1.0)
[2018-10-21 22:46] LABS: SQUAMOUS 0-3 Few /LPF (0-3)
[2018-10-21 22:47] LABS: BACTERIA-REFLEX 1-9 Few /HPF (None Seen); CRYSTALS None Seen /LPF (None Seen); HYALINE CASTS 0-3 Few /LPF (None Seen); MUCUS 0-3 Light strn/LPF (None Seen); URINE RBC 3-10 Few /HPF (0-2); URINE WBC-REFLEX 6-15 Few /HPF (0-5)
[2018-10-21 23:35] VITALS: BP 133/61
[2018-10-22] VITALS (9 sets, daily range): BP systolic 104–170; BP diastolic 55–87
[2018-10-22 05:20] LABS: HEMATOCRIT 25.9 % (37.0-47.0); HEMOGLOBIN 8.5 gm/dL (12.0-15.0); MCH 29.3 pg (26.0-34.0); MCHC 32.8 g/dL (28.0-37.0); MCV 89.2 fL (80.0-100.0); RBC 2.9 mil/uL (4.20-5.00); RDW 14.7 % (10.5-14.5); WBC 6.5 thou/uL (4.0-11.0)
--- NOTE | 2018-10-22 05:43 | NUR ---
Dr. Austin notified of lab results and orders received. Pt. is oriented to person only and very forgetful. Frequent reorientation given and this am she intermittently remembers she's at the hospital and she had fallen at [place]. She repeats the details then forgets again. Bed alarm on for safety. IV on left hand infiltrated last night. New IV placed on left FA and IV fluids infusing. Pt. incontinent of bladder ( brief soaking wet at beginning of shift). Assisted to get up to commode with use of gaitbelt and walker. She was able to void per commode so straight cathed not done. Urine sample sent to lab. Dr. Austin came in to see pt. and had seen results. BP has been stable. O2 at 2L/NC with O2 sat up to 100%.She did get short of breath after using the commode but easily recovers. Will continue to monitor. breath with exertion after using the commode.
--- NOTE | 2018-10-22 07:34 | EKG ---
[address] [place] [address] ELECTROCARDIOGRAM REPORT Name: SARAVANAN HERNANDEZ Room #: 364-P ADM IN M.R.#: [id number] ������������������ Admission: 10/21/18 ������������������ Attend Phys: Kelechi Austin MD Discharge: ������������������ Date of : 32 Report #: [id number] ����������������������������������������������������������������� [id number] THIS REPORT FOR: //name// [facility] Test Date: 2018-10-21 Test Time: 17:38:31 Pat Name: SARAVANAN HERNANDEZ Department: Room: 364 P Gender: F Certified Dialysis Technician: Harriet AYERS : 1930 Requested By: Kelechi Austin Order Number: [id number] MD: Chele Melgar Measurements Intervals [place] Rate: 56 P: 59 GA: 189 QRS: 19 QRSD: 101 T: 51 QT: 444 QTc: 429 Interpretive Statements Sinus bradycardia Otherwise normal tracing Compared to ECG 10/19/2018 14:25:19 No significant changes Electronically Signed On 10-22-2018 7:34:27 CDT by Chele Melgar [email or web address] ��������������������������������������������� <ELECTRONICALLY SIGNED> ���������������������������������������� By: Chele Melgar MD, [facility] ��������������������������������������������� 10/22/18 0734 1738 173 Chele Melgar MD, [facility] /EPI
--- NOTE | 2018-10-22 08:51 | 2DMMODE ---
[facility] [place] [address] 2 D/M-MODE ECHOCARDIOGRAM Name: SARAVANAN HERNANDEZ Room #: 364-P ADM IN M.R.#: [id number] ������������� Admission: 10/21/18 ������������� Attend Phys: Kelechi Austin MD Discharge: ��� ������������� ��� Date of : 34 Date of Service: 10/22/18 0851 �� Report #: [id number] �������� ��������������������������������������������[id number] THIS REPORT FOR: //name// APPROVED REPORT Study performed: 10/22/2018 07:01:19 EXAM: Comprehensive 2D, Doppler, and color-flow Echocardiogram Patient Location: Bedside Room #: 364 Status: routine BSA: 1.88 HR: 58 bpm BP: 112/70 mmHg Rhythm: NSR Other Information Study Quality: Adequate/heavy snoring, no patient cooperation, no mobility Indications Syncope Hypoemia. 2D Dimensions RVDd: 36.35 mm IVSd: 11.73 (7-11mm) LVOT Diam: 19.11 (18-24mm) LVDd: 42.57 mm PWd: 11.07 (7-11mm) Ascending Ao: 32.74 (22-36mm) LVDs: 26.55 (25-40mm) Aortic Root: 31.45 mm Volumes Left Atrial Volume (Systole) Single Plane 4CH: 53.11 mL Single Plane 2CH: 49.51 mL LA ESV Index: 30.00 mL/m2 Aortic Valve AoV Peak Chemo.: 1.80 m/s AO Peak Gr.: 12.94 mmHg LVOT Max P.37 mmHg LVOT Max V: 1.05 m/s DENNISE Vmax: 1.67 cm2 Mitral Valve E/A Ratio: 0.8 [facility] [address] [address] 2 D/M-MODE ECHOCARDIOGRAM Name: SARAVANAN HERNANDEZ Room #: 364-P [facility] IN [facility].#: [id number] ������������� Admission: 10/21/18 ������������� Attend Phys: Kelechi Austin MD Discharge: ��� ������������� ��� Date of : 34 Date of Service: 10/22/18 0851 �� Report #: [id number] �������� ��������������������������������������������[id number] MV Decel. Time: 224.08 ms MV E Max Chemo.: 1.09 m/s MV A Chemo.: 1.38 m/s MV PHT: 64.98 ms IVRT: 83.04 ms Pulmonary Valve PV Peak Chemo.: 1.22 m/s PV Peak Gr.: 5.97 mmHg Pulmonary Vein P Vein S: 0.73 m/s P Vein A: 0.32 m/s P Vein D: 0.42 m/s P Vein A Dur.: 129.2 msec P Vein S/D Ratio: 1.74 Tricuspid Valve TR Peak Chemo.: 3.23 m/s RAP Estimate: 5.00 mmHg TR Peak Gr.: 41.85 mmHg PA Pressure: 47.00 mmHg Left Ventricle The left ventricle is normal size. There is normal LV segmental wall motion. Mild septal hypertrophy. Left ventricular systolic function is normal. LVEF is 60-65%. Mild diastolic dysfunction is present (impaired relaxation pattern). Right Ventricle The right ventricle is normal size. The right ventricular systolic function is normal. Atria The left atrium size is normal. The right atrium size is normal. Aortic Valve Aortic valve is trileaflet; mildly thickened and calcified. No aortic regurgitation is present. There is no aortic valvular stenosis. Mitral Valve The mitral valve is normal in structure. Trace to mild mitral regurgitation. Tricuspid Valve The tricuspid valve is normal in structure. Mild to moderate tricuspid regurgitation. Estimated PAP is 45[address]. [place] [address] 2 D/M-MODE ECHOCARDIOGRAM Name: SARAVANAN HERNANDEZ Room #: 364-P [facility] IN M.R.#: [id number] ������������� Admission: 10/21/18 ������������� Attend Phys: Kelechi Austin MD Discharge: ��� ������������� ��� Date of : 34 Date of Service: 10/22/18 0851 �� Report #: [id number] �������� ��������������������������������������������[id number] Pulmonic Valve The pulmonary valve is normal in structure. Trace pulmonic regurgitation. Great Vessels The aortic root is normal in size. The ascending aorta is normal in size. IVC is normal in size and collapses >50% with inspiration. Pericardium There is no pericardial effusion. <Conclusion> Left ventricular systolic function is normal. There is normal LV segmental wall motion. LVEF is 60-65%. Mild diastolic dysfunction Aortic valve is trileaflet; mildly thickened and calcified. No aortic regurgitation or stenosis The mitral valve is normal in structure. Trace to mild mitral regurgitation. Mild to moderate tricuspid regurgitation. Estimated pulmonary artery pressure of 45mmHg. There is no pericardial effusion. ��������������������������������������������� <ELECTRONICALLY SIGNED> ���������������������������������������� By: Chele Melgar MD, [facility] ��������������������������������������������� 10/22/18 0851 0 Chele Melgar MD, [facility] /INF
[2018-10-22 10:08] LABS: GLYCOHEMOGLOBIN (HGB A1C) 6.2 % (4.8-5.6)
--- NOTE | 2018-10-22 13:32 | NUR ---
INITIAL ASSESSMENT: SW reviewed chart and spoke with nursing. Pt was admitted from [facility] due to recurrent falls with possible syncopal episodes. SW met with pt at bedside. Introduced role of SW. Pt is alert/orientated x 4. Pt reports she has lived at [facility] for about 5 years. Prior to admission, pt was independent with ADLs. Pt does have a rollator walker. Pt has been to [facility] in the past for inpt acute rehab and has used [facility] for home health. Pt's PCP is Dr. Austin. Pt was not on O2 prior to admission. PT eval ordered today. Plan is for pt to return to [facility] when medically stable. SW is following to assist as needed with discharge planning.
[2018-10-22 16:41] LABS: ABSOLUTE RETIC COUNT 0.0846 10^6/uL; HEMATOCRIT 25.5 % (37.0-47.0); HEMOGLOBIN 8.3 gm/dL (12.0-15.0); OBSERVED RETIC COUNT 2.95 % (0.6-2.6)
[2018-10-22 16:51] LABS: % SATURATION 7 % (20-39); IRON 20 ug/dL (50-170); TIBC 305 ug/dL (250-450)
--- NOTE | 2018-10-22 17:33 | NUR ---
PT ALERT AND ORIENTED TIMES THREE WITH PERIODS OF CONFUSION. VSS, 99%2L, SR ON TELE, IVF INFUSING PER ORDER. PT DENIES PAIN/SOA. PT TOLERATES MEDS AND MEALS. PT UP TO BSC WITH ASSIST OF ONE. PT SLOWLY PROGRESSING TOWRADS POC GOALS.
[2018-10-22 17:49] LABS: FOLIC ACID 40.2 ng/mL (8.6-58.9)
--- NOTE | 2018-10-23 03:14 | NUR ---
Pt. able to answer orientation questions with periods of being forgetful. C/O pain on bilateral lower extremities which she stated she had for years. Scheduled tylenol given with some relief. O2 at 2L/NC , shortness of breath with exertion. She slept well during the night. Bed alarm on for safety. Female external cath in place. Making progress towards care plan goals.
[2018-10-23 06:25] LABS: APTT 29.2 Seconds (24.5-32.8); PROTIME 9.9 Seconds (9.3-11.4)
[2018-10-23 06:32] LABS: CALCIUM 8.4 mg/dL (8.5-10.1); CREATININE 1.3 mg/dL (0.6-1.0); POTASSIUM 5.1 mmol/L (3.5-5.1)
[2018-10-23 06:35] LABS: HEMATOCRIT 24.8 % (37.0-47.0); HEMOGLOBIN 8.3 gm/dL (12.0-15.0)
[2018-10-23 07:57] VITALS: BP 148/85
[2018-10-23 11:26] VITALS: BP 156/55
--- NOTE | 2018-10-23 14:39 | NUR ---
DISCHARGE PLANNING. PATIENT RESIDES AT [facility]. PLAN IS FOR PATIENT TO RETURN ONCE MEDICALLY READY. CLINICAL INFORMATION FAXED TO [facility]. NANO WITH [facility] NOTIFIED, STATES THEY CAN ACCEPT PATIENT OVER THE WEEKEND ONCE DISCHARGE ORDERS COMPLETED. UNIT CM/SW AWARE. FOLLOWING TO ASSIST.
--- NOTE | 2018-10-23 15:13 | NUR ---
SW reviewed chart and spoke with nursing. Pt is slowly progressing towards goals for discharge. Pt remains on O2 and is working with therapy. town planner faxed updates to [facility] for review. Should pt be ready for discharge back to [facility] over the weekend, they are able to accept pt back. If pt needs post-acute placement, will need insurance authorization. JEVON is following to assist as needed with discharge planning. [facility]-- [place] [facility]--
[2018-10-23 17:04] VITALS: BP 152/74
[2018-10-23 20:47] VITALS: BP 181/72
[2018-10-24] VITALS (8 sets, daily range): BP systolic 142–189; BP diastolic 57–87
--- NOTE | 2018-10-24 06:18 | NUR ---
SLEPT LITTLE THIS SHIFT. CALLS OUT FREQUENTLY, THOUGHT SHE WAS OUTSIDE DURING NOC. ORIENTED X4 BUT IS FORGETFUL. THOUGHT ROOM WAS OUTSIDE OF HOSPITAL. WORKING ON GOALS AND PLAN OF CARE FOR NOC. TURNS IN BED FREQUENTLY. CONTINUE TO ASSES. DR CHOI WAS HERE LAST NOC. WAS INCONTINENT OF 2 LOOSE STOOLS. PLACED IN ISOLATION FOR POSSIBLE CDIFF. WILL OBTAIN SAMPLE WITH NEXT STOOL.
[2018-10-24 07:30] LABS: HEMATOCRIT 24.6 % (37.0-47.0); HEMOGLOBIN 8.1 gm/dL (12.0-15.0)
[2018-10-24 07:54] LABS: CALCIUM 8.7 mg/dL (8.5-10.1)
--- NOTE | 2018-10-24 14:39 | NUR ---
care of pt assumed this am @ ~0700. pt noted to be complaining re: the lack of effectiveness of the external female catheter for her throughout the noc. pt verbalized her incontinence of urine and stool (on occassion). pt up to her chair for breakfast today, but pt states her lower back and lt leg discomfort increase while up in the chair thus she does not want to remain in the chair for more than 2 hrs. ivf dc'd. cdiff negative, pt taken out of isolation.
[2018-10-25 00:44] LABS: ANION GAP 9 mmol/L (7-16); BUN 15 mg/dL (7-18); CALCIUM 8.7 mg/dL (8.5-10.1); CHLORIDE 99 mmol/L (98-107); CO2 24 mmol/L (21-32); CREATININE 0.9 mg/dL (0.6-1.0); GLUCOSE 121 mg/dL (74-106)
[2018-10-25 00:53] LABS: MAGNESIUM 1.5 mg/dL (1.8-2.4); TROPONIN-I <0.06 ng/mL (<0.06)
[2018-10-25 00:55] LABS: SODIUM 132 mmol/L (136-145)
--- NOTE | 2018-10-25 04:27 | NUR ---
2321 TELEMETRY SHOWS AFIB 100-130'S, EKG CONFIRMED AFIB. DR. LEMONS NOTIFIED. ORDERS RECIEVED. COREG GIVEN X1 PER ORDERS. PATIENT DENIES DISCOMFORT AT THIS TIME. 0200 TELEMETRY REMAINS SHOWING AFIB WITH RATES 80-130'S. PATIENT SLEEPING. 0320 PATIENT CONVERTED TO SR,PAC RATE 65-85. NO COMPLAINTS OF PAIN OR SHORTNESS OF AIR AT THIS TIME. TURNS SELF WITHOUT PROBLEMS. FEMALE CATH REMAINS IN PLACE AND LEAKS AT TIMES. WORKING ON GOALS AND PLAN OF CARE FOR NOC. PROGRESSING TOWARDS DISCHARGE GOALS SLOWLY. CONTINUE TO ASSES CLOSELY.
[2018-10-25 04:48] VITALS: BP 141/59
[2018-10-25 07:50] VITALS: BP 163/91
[2018-10-25 07:52] VITALS: BP 170/101
[2018-10-25 11:18] VITALS: BP 156/60
--- NOTE | 2018-10-25 14:53 | NUR ---
pt moved from room 364 to 361 dt increased forgetfulness and confusion. pt seen trying to get out of bed (with a leg over the siderail) w/o calling for assistance. pt awake, oriented x3 (unaware of where she is). pt cooperative, calm and able to follow commands. pt co being sleepy, O2 @ 4lt nc dt noted mouth breather and snoring while sleeping.
[2018-10-25 16:00] VITALS: BP 167/58
--- NOTE | 2018-10-25 17:34 | NUR ---
care of pt assumed this am @ ~0700. pt noted to be alert & oriented x4 today, but around 1400 pt became increasing forgetful, drowsy and confused. she was noted to place her leg over the side rail (setting off the bed alarm) and when asked why she stated she was "getting up", she was reminded that she needed to call staff for help and she was asked how she calls staff and she stated "by pushing the red button". pt w/ co lower back and lt leg discomfort today, pt on scheduled tylenol for discomfort and she was repositioned frequently for comfort. pt up to her chair once late afternoon when she was attempting to get out of bed. pt w/ a poor appetite for her meals today, stating she does not want to eat when the meals arrive, but when set up and assisted she does consume ~ 20-25% of meals today. pt has enjoyed water, klaudia tea and milk today. possible dc back to pt's facility ([facility]) tomorrow w/ robin assistance and dr siddiqui orders.
[2018-10-25 20:00] VITALS: BP 179/57
[2018-10-26 03:35] VITALS: BP 179/74
--- NOTE | 2018-10-26 03:46 | NUR ---
SLEPT PART OF SHIFT. REMAINS ORIENTED X3-4 FORGETTING DATE. REMAINS FORGETFUL AND ANXIOUS AT TIMES JUST REPEATING I NEED HELP. REASSURED AND ROSARY GIVEN FOR COMFORT. WORKING ON GOALS AND PLAN OF CARE FOR NOC. TELEMETRY SHOWING SB/SR, 1AVB, BBB TONIGHT WITHOUT EPISODES OF AFIB THIS SHIFT. PROGRESSING SLOWLY TOWARDS DISCHARGE GOALS. CONTINUE TO ASSES CLOSELY.
[2018-10-26 07:38] VITALS: BP 191/69
--- NOTE | 2018-10-26 08:15 | EKG ---
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: 3w : 1930 Requested By: Kelechi Austin Order Number: [id number] MD: George Kemp Measurements Intervals [place] Rate: 134 P: PA: QRS: 52 QRSD: 97 T: 26 QT: 333 QTc: 498 Interpretive Statements Atrial fibrillation Borderline low voltage, extremity leads Probable left ventricular hypertrophy Compared to ECG 10/21/2018 17:38:31 Sinus bradycardia no longer present Electronically Signed On 10-26-2018 8:15:10 CDT by George Kemp [email or web address] ��������������������������������������������� <ELECTRONICALLY SIGNED> ���������������������������������������� By: George Kemp MD ��������������������������������������������� 10/26/18 0815 2345 George Kemp MD /ELVIE
[2018-10-26 11:29] VITALS: BP 158/57
--- NOTE | 2018-10-26 14:00 | NUR ---
care of pt assumed @ ~0700 this am. pt noted to be sleeping and snoring this am, noted O2 @ 2lt nc. pt noted to be incontinent of urine this am, w/ external female catheter in place. mid to late morning pt co lower back pain stating "i feel like there is something poking my back" "i don't know what is huring my back", pt up in chair via pt, lower back assess w/ nothing noted externally to cause discomfort, pt informed of tylenol to be given @ 1400, but pt states she can not wait that long and requested me to call dr. johnson for more pain medication, done. pt only able to stay up in her chair for 2hrs then was requesting to go back to be post lunch. pt oriented to self, place and situation, but not to time today. pt w/ a better appetite for her meals today than yesterday. pt denies soa and no n/v/d today. pt verbalized that her son/Guanakito lives in [place], but the last time she saw him was evening and is wondering why he has not come to revisit her.
[2018-10-26 15:19] VITALS: BP 161/57
--- NOTE | 2018-10-26 15:45 | NUR ---
SW reviewed chart and spoke with nursing. Pt was moved closer to the nurses desk over the weekend due to trying to climb out of bed. Therapy working with pt fo recommendation for discharge disposition. SW is following to assist as needed with discharge planning.
[2018-10-26 19:34] VITALS: BP 151/59
--- NOTE | 2018-10-26 21:15 | NUR ---
Hypoglycemia bs 67. Patient asymptomatic. Treated with apple juice bs up to 106 on recheck
[2018-10-27] VITALS: BP 153/68
--- NOTE | 2018-10-27 03:39 | NUR ---
Patient making slow progress towards outcome goals. Vital signs and rhythm stable. High fall risks, fall precautions in place.
[2018-10-27 04:05] VITALS: BP 177/78
[2018-10-27 05:56] LABS: HEMATOCRIT 25.2 % (37.0-47.0); HEMOGLOBIN 8.4 gm/dL (12.0-15.0)
[2018-10-27 06:10] LABS: APTT 33.1 Seconds (24.5-32.8); CALCIUM 8.9 mg/dL (8.5-10.1); MAGNESIUM 1.9 mg/dL (1.8-2.4); POTASSIUM 4.1 mmol/L (3.5-5.1)
[2018-10-27 07:37] VITALS: BP 162/61
--- NOTE | 2018-10-27 10:09 | NUR ---
Patient has had low HR this AM. Dr. Austin called to see if he would like the patient to still have her carvedilol this AM. A set of orthostatic BP vitals were taken. Orders given to administer carvedilol and add on Losartan 50 mg PO daily. Will continue to monitor.
--- NOTE | 2018-10-27 11:12 | NUR ---
Nutrition: screen for LOS. No new wt since admit. Wt up several pounds over past few months to year. Pt appetite noted to be okay with intake yesterday improved from prior day. Hyponatremia delaying discharge. Na 129, Cl 95, last albumin WNL. MVI, Ca, lactulose and other meds reivewed. Assess at low nutrition risk at this time. Rec offer snacks/supplements PRN for decreased appetite/intake and recommend obtain current wt.
[2018-10-27 11:18] VITALS: BP 157/63
[2018-10-27 11:48] LABS: URINE POTASSIUM-RANDOM* 8.6 mmol/L
--- NOTE | 2018-10-27 15:08 | NUR ---
JEVON reviewed chart and spoke with nursing. Recommendation made for pt to go to SNF for continued rehab services. JEVON met with pt at bedside to discuss post-acute placement. Pt states her mother was at [facility]. She requests a referral to be sent to [facility]. JEVON spoke with pt's son, Guanakito, via phone to provide update and discuss post-acute placement. REviewed SNF list with pt's son. Pt's son agreeable with referral to [facility] due to location. JEVON faxed clinical info and notified Nayeli in admissions of new referral. Will need insurance authorization. JEVON updated attending physician. JEVON is following to assist as needed with discharge planning.
[2018-10-27 16:22] VITALS: BP 153/64
--- NOTE | 2018-10-27 17:33 | NUR ---
Patient alert and oriented but forgetful of time. Dr. Austin to see patient at bedside this AM. No discharge orders given today due to low sodium level. Female external cath tried again but not working for patient. Patient has had several incontinent voids and one incontinent BM today. Despite some bradycardia of 57-59, orders given to still administer carvedilol for high SBP by Dr. Austin. AM orthostatic BP completed and reported to this morning. Progress made toward plan of care as patient's blood pressure seems to be improving.
[2018-10-27 19:23] VITALS: BP 136/56
[2018-10-28] VITALS (8 sets, daily range): BP systolic 121–181; BP diastolic 7–98
[2018-10-28 04:43] LABS: CALCIUM 8.9 mg/dL (8.5-10.1)
[2018-10-28 04:51] LABS: POTASSIUM 5.6 mmol/L (3.5-5.1)
--- NOTE | 2018-10-28 05:55 | NUR ---
ASSUMED CARE AT 1900, ASSESSMENT COMPLETED x3 OVERNIGHT. PT C/O PAIN IN LEFT HIP, GIVEN SCHEDULED TYLENOL AND XANEX WELL MENTHOL CREAM RUBBED ON SITE. DENIES NAUSEA OR SOB; SATTING WELL ON 1.5 L, LUNGS CLEAR AND SLIGHTLY COARSE. HAD MULTIPLE LOOSE YELLOW/BROWN STOOLS OVERNIGHT, LARGE AMOUNTS OF URINARY INCONT WELL. HS BLOOD SUGAR OF 153, HELD SLIDING SCALE INSULIN; PT DID HAVE A SNACK OF ICE CREAM AROUND MIDNIGHT AND MORNING BLOOD SUGAR WITH LABS WAS AROUND 120. HAS BEEN SR WITH HR 60-70 OVERNIGHT. NO OTHER CONCERNS, WILL CONTINUE TO MONITOR.
[2018-10-28 09:57] LABS: CREATININE 1.2 mg/dL (0.6-1.0)
[2018-10-28 09:58] LABS: POTASSIUM 4.4 mmol/L (3.5-5.1)
--- NOTE | 2018-10-28 12:00 | NUR ---
JEVON reviewed chart. JEVON faxed clinical/therapy updates to Nayeli at [facility] for review. Awaiting official acceptance from [facility]. Will need insurance authorization. JEVON is following to assist as needed with discharge planning.
--- NOTE | 2018-10-28 16:09 | NUR ---
Patient alert and oriented x4 today. Patient continues to wet the bed continuously. Dr. Austin made aware of patient voiding all day and night. Patient was bladder scanned per orders. Bladder scan numbers were in the mid 200's. Patient up to toilet to urinate as Dr. Austin wanted the patient to try and completely empty her bladder. Patient voided more and second bladder scan numbers dropped down to 147. Patient will continue to be encouraged to get up and use the toilet to promote exercise, and to fully empty her bladder. Patient did get up to the chair for a few hours today. Slowly making progress toward plan of care goals at this time.
[2018-10-29] VITALS (8 sets, daily range): BP systolic 134–168; BP diastolic 53–598
[2018-10-29 04:42] LABS: HEMATOCRIT 24.9 % (37.0-47.0); HEMOGLOBIN 8.5 gm/dL (12.0-15.0)
--- NOTE | 2018-10-29 04:44 | NUR ---
PATIENT IS SLOWLY PROGRESSING IN HER CARE PLAN. VITAL SIGNS STABLE WITH PATIENT HAVING NO COMPLAINTS OF NAUSEA. PATIENT DID COMPLAIN OF MINIMAL PAIN IN HIP AND LOWER BACK WHICH WAS TREATED EFFECTIVELY WITH MEDICATION AND POSITIONING. PATIENT IS ALERT AND ORIENTED BUT HAS BEEN FORGETFUL DURING THIS SHIFT. BREATHING STABLE ON ROOM AIR EVIDENCED BY SPOT OXYGENATION CHECKS. PATIENT HAS BEEN UNWILLING TO TRY BEDSIDE COMMODE AND HAS BEEN CLEANED FOR FREQUENT URINARY INCONTINENCE WITH SKIN CLEANED AND PROTECTED. NPO FROM MIDNIGHT ON IN ANTICIPATION OF TODAYS PROCEDURE. PATIENT IS ANXIOUS FOR POTENTIAL DISCHARGE. CONTINUE PLAN OF CARE.
[2018-10-29 04:56] LABS: CALCIUM 8.9 mg/dL (8.5-10.1); POTASSIUM 4.9 mmol/L (3.5-5.1)
[2018-10-29] MEDS ORDERED: COZAAR 50 MG TA50 M1 PO (16:16)
[2018-10-29] MEDS ORDERED: CALTRATE-600 W1 EACH PO (16:16)
[2018-10-29] MEDS ORDERED: EXTRA STRENGTH85 GM TOP (16:16)
[2018-10-29] MEDS ORDERED: MELATONIN5 M1 PO (16:16)
[2018-10-29] MEDS ORDERED: GLUCAGEN1 MG/1 ML IM (16:16)
[2018-10-29] MEDS ORDERED: PACERONE 200 M200 M1 PO (16:16)
[2018-10-29] MEDS ORDERED: NOVOLOG100 UNIT/1 SUBQ (16:16)
--- NOTE | 2018-10-29 16:28 | NUR ---
Assumed care at 0700 this morning. Patient has been ALOx4. An external cath has been placed on patient, and working well for her today. Orthostatic blood presssures completed per orders. Patient was NPO this AM for renal ultrasound, but ultrasound told this RN they will not be in until tomorrow morning as it is not an emergency and today is a holiday. Diet reordered for patient per verbal orders from Dr. Tobias. Patient will be made NPO again at midnight for prep of renal US tomorrow morning then most likely discharge tomorrow per discussion with Dr. Austin. Progress being made toward plan of care.
--- NOTE | 2018-10-30 03:54 | NUR ---
PATIENT IS PROGRESSING SLOWLY IN HER CARE PLAN. VITAL SIGNS STABLE WITH PATIENT HAVING NO COMPLAINTS OF NAUSEA. PATIENT DID COMPLAIN OF PAIN IN LOWER BACK AND HIP WHICH NURSE TREATED WITH MEDICATION. EFFECTIVENESS OF TREATMENT COMPROMISED BY PATIENTS REFUSAL TO BE REPOSITIONED AND ALLOW NURSE TO ADMINISTER TOPICAL MEDICATION. MULTIPLE HOURS OF UNINTERRUPTED SLEEP PROVIDED. PATIENT ALLOWED STAFF TO PLACE EXTERNAL CATH TO GOOD EFFECT WITH PATIENT HAVING ADEQUATE OUTPUT. PATIENT IS ANXIOUS FOR DISCHARGE SOON. CONTINUE PLAN OF CARE.
[2018-10-30 04:41] VITALS: BP 195/74
[2018-10-30 05:51] VITALS: BP 129/59; BP 137/68; BP 155/64
[2018-10-30 07:35] VITALS: BP 187/68
[2018-10-30 07:39] LABS: CALCIUM 9.1 mg/dL (8.5-10.1); CREATININE 1.1 mg/dL (0.6-1.0); POTASSIUM 4.6 mmol/L (3.5-5.1)
--- NOTE | 2018-10-30 09:18 | NUR ---
DISCHARGE PLANNING. ANTICIPATED DISCHARGE TO [facility] ONCE MEDICALLY STABLE AND INSURANCE AUTH OBTAINED. UPDATED CLINICAL INFORMATION [facility], FOR INSURANCE AUTH PROCESS. FOLLOWING TO ASSIST WITH DISCHARGE.
--- NOTE | 2018-10-30 10:20 | NUR ---
JEVON reviewed chart and spoke with nursing. Updated clinical info faxed to [facility] for review. Pt has order for a renal ultrasound, which may not be able to be completed today or over the weekend. JEVON left voice message for Kary ([phone]) at [facility] to provide update and discuss possibility of insurance authorization for SNF. JEVON is following to assist as needed with discharge planning.
[2018-10-30 11:11] VITALS: BP 139/47
[2018-10-30 16:03] VITALS: BP 147/62
--- NOTE | 2018-10-30 17:46 | NUR ---
ASSUMED CARE OF PT AT 0700. ASSESSMENT CHARTED. A&O,X4 SOMETIMES FORGETFUL. C/O HIP AND BACK PAIN, SCHEDULED TYLENOL AND TOPICAL CREAM GIVEN ORDERED. WORKED WITH P.T. UP TO CHAIR AND WALKED TODAY. AT BEGINNING OF SHIFT PT NPO FOR RENAL US, PROCEDURE UNABLE TO BE PERFORMED TODAY. PHYSICIAN NOTIFIED. DR. CHOI AND BRETT AWARE. PT RETURNED TO CARB CONTROL DIET ORDER PER DR. WEST. ACHS, PT REFUSED INSULIN SLIDING SCALE. PLAN FOR RENAL US ON FRIDAY AND WAITING FOR INSURANCE AUTH. PT IN STABLE CONDITION. SON AT BEDSIDE THIS EVENING. PROGRESSING SLOWLY TOWARDS GOALS.
[2018-10-30 19:54] VITALS: BP 144/69
[2018-10-31 05:00] VITALS: BP 162/65
[2018-10-31 05:54] LABS: HEMATOCRIT 29.2 % (37.0-47.0); HEMOGLOBIN 9.7 gm/dL (12.0-15.0); MCH 29.9 pg (26.0-34.0); MCHC 33.4 g/dL (28.0-37.0); MCV 89.6 fL (80.0-100.0); RBC 3.26 mil/uL (4.20-5.00); RDW 15.1 % (10.5-14.5); WBC 8.3 thou/uL (4.0-11.0)
[2018-10-31 05:56] LABS: CALCIUM 8.8 mg/dL (8.5-10.1); POTASSIUM 4.3 mmol/L (3.5-5.1)
--- NOTE | 2018-10-31 07:47 | NUR ---
PATIENT IS ALERT AND ORIENTED BUT FORGETFUL. PATIENT IS PENDING RENAL US TODAY. PATIENT IS 1 DEGREE AVB [place] ON TELE. PATIENT IS 1500ML FLUID RESTRICTION. PATIENT LBM WAS THE 6TH. PATIENT IS INCONTIENT. EXTERNAL FEMALE CATH IN PLACE. PATIENTS PAIN IS TREATED WITH MEDS. PATIENT IS RESTING COMFORTABLY IN BED. WCM.
[2018-10-31 08:10] VITALS: BP 163/60
[2018-10-31 11:36] VITALS: BP 142/42
[2018-10-31 16:48] VITALS: BP 147/91
--- NOTE | 2018-10-31 18:40 | NUR ---
pt's vs are stable, pt is A&O X3, but pt is forgetful, pt needs help to change position, pt gets up to chair with help, staying chair about 1.5 hr, pt's vs are stable, pt's back and both hip pain have improved by medications.
[2018-10-31 20:05] VITALS: BP 145/55
--- NOTE | 2018-10-31 21:52 | NUR ---
NO IV FLUIDS AT THIS TIME PER DR WEST FOR FLUID RESTRICTION. ENCOURAGE PATIENT TO PARTICIPATE IN PT. GIVE PAIN MEDS PRIOR PT OT SESSION. PENDING INSURANCE APPROVAL FOR SNF ON FRIDAY. SHELLY
[2018-11-01 04:00] VITALS: BP 117/92
--- NOTE | 2018-11-01 04:01 | NUR ---
PATIENT IS ALERT AND ORIENTED. PATIENT IS UP TIME 1-2 ASSIST WITH WALKER. PATIENT IS TO BE ENCOURAGED TO DO WELL IN PT TO RECEIVE APPROVAL FROM INSURANCE FOR SNF. PATIENT IS PENDING POSSIBLE PLACEMENT IN SNF ON FRIDAY. PATIENT IS ROOM AIR. PATIENTS LBM WAS TODAY THE 7TH. PATIENT DOES NOT REQUIRE ANY MORE LAXITIVES. PATIENT GOT A BATH THIS SHIFT. PATIENT IS ON 1500ML FLUID RESTRICTION. PATIENTS PAIN IS TREATED WITH MEDICATION. PATIENT IS RESTING COMFORTABLY IN BED. WCM. PATIENT IS PROGRESSING TO GOALS.
[2018-11-01 06:18] LABS: CALCIUM 8.9 mg/dL (8.5-10.1); CREATININE 1.1 mg/dL (0.6-1.0); POTASSIUM 4.2 mmol/L (3.5-5.1)
[2018-11-01 08:12] VITALS: BP 131/52
--- NOTE | 2018-11-01 10:13 | NUR ---
PT A&OX4, IV INTACT IN L FA, INCONT OF B/B, AMBULATES WITH WALKER AND ASSIST X2. PT IS ON A 1500ML FLUID RESTRICTION. BED ALARM ON. WILL CONT POC.
[2018-11-01 16:18] VITALS: BP 168/57
[2018-11-01 19:13] VITALS: BP 136/40
--- NOTE | 2018-11-02 01:33 | NUR ---
PT IS ALERT AND ORIENTED. SHE CAN BE CONFUSED AND FORGETFUL. PT ALSO GETS ANXIOUS AND WILL YELL OUT EVEN WHEN SHE HAS THE CALL LIGHT IN HAND. WITH URINARY FREQUENCY/INCONTINENCE. HAD A BM. C/O MIRTA HIP PAIN. FALL PREC IN PLACE. WILL CONTINUE WITH POC TILL EOS.
[2018-11-02 04:43] VITALS: BP 141/54
[2018-11-02 05:35] LABS: HEMATOCRIT 30.3 % (37.0-47.0); HEMOGLOBIN 10.2 gm/dL (12.0-15.0); MCH 30.2 pg (26.0-34.0); MCHC 33.6 g/dL (28.0-37.0); MCV 89.9 fL (80.0-100.0); RBC 3.37 mil/uL (4.20-5.00); RDW 16.5 % (10.5-14.5)
[2018-11-02 05:41] LABS: CREATININE 1.1 mg/dL (0.6-1.0); POTASSIUM 4.4 mmol/L (3.5-5.1)
[2018-11-02 10:51] VITALS: BP 131/51
--- NOTE | 2018-11-02 11:49 | NUR ---
PT A&OX4, INCONT. OF B/B, AMBULATES WITH WALKER AND ASSIST X1. PT WAS UP IN CHAIR THIS AM NOW WITH OT. C/O ABD PAIN K PAD APPLIED STATES RELEIF. OT IN WITH PT. WILL CONT POC.
--- NOTE | 2018-11-02 15:45 | NUR ---
catie faxed updates to [facility] and contacted Lm/meño to let her know to expect updates.
[2018-11-02 16:22] VITALS: BP 132/63
--- NOTE | 2018-11-02 16:47 | NUR ---
ASKED DC PLANNERTO FAX UPDATES TO [facility]. PT'S CARE DISCUSSED WITH NURSING.
[2018-11-02 19:55] VITALS: BP 139/40
--- NOTE | 2018-11-03 04:26 | NUR ---
Assumed pt care at 1900. A/OX4 with forgetfulness noted,will occasionally yell out for help instead of using the call light or call and state "I forgot what I wanted". C/o pain to back,medicated with scheduled Tylenol.refused using the heating pad tonight. Pt last BM was 11/02 but c/o constipation and requested for Miralax,Miralax administered per request. Pt had an external catheter,it was leaking stated she wasn't comfortable with it and declined having it reapplied. Incontinent of urine. Fall precautions in place,will continue to monitor pt.
[2018-11-03 05:38] LABS: CREATININE 1.3 mg/dL (0.6-1.0); POTASSIUM 4.6 mmol/L (3.5-5.1); URIC ACID* 5.3 mg/dL (2.6-7.2)
[2018-11-03 05:40] LABS: CALCIUM 9.2 mg/dL (8.5-10.1)
[2018-11-03 07:58] VITALS: BP 158/59
--- NOTE | 2018-11-03 10:00 | NUR ---
catie sent message to salty at [facility] inquiring if they obtained authorization on patient yet, who is ready today.
[2018-11-03 15:47] VITALS: BP 168/58
--- NOTE | 2018-11-03 16:31 | NUR ---
found a home number listed for son in [facility] paperwork & PT'S DISCHARGE DETAILS LEFT ON THIS PHONE FOR THE SON.
[2018-11-03 16:34] VITALS: BP 168/58
== END 2018-11-03 17:15 | DRG 683 ==
LOC: 3W 14:41 → 4E 14:50 → 3W 15:48 → 4E 11-01 06:20
PROVIDERS: Internal Medicine; Nurse Practitioner Gerontology; ADMIT Internal Medicine
DX: N17.9 Acute kidney failure, unspecified (principal); E87.1 Hypo-osmolality and hyponatremia; I48.0 Paroxysmal atrial fibrillation; I12.9 Hypertensive chronic kidney disease with stage 1 through stage 4 chronic kidney disease, or unspecified chronic kidney disease; K21.9 Gastro-esophageal reflux disease without esophagitis; E03.9 Hypothyroidism, unspecified; K58.9 Irritable bowel syndrome, unspecified; G89.29 Other chronic pain; M54.9 Dorsalgia, unspecified; F03.90 Unspecified dementia, unspecified severity, without behavioral disturbance, psychotic disturbance, mood disturbance, and anxiety; D50.9 Iron deficiency anemia, unspecified; Z96.649 Presence of unspecified artificial hip joint; F32.9 Major depressive disorder, single episode, unspecified; K59.00 Constipation, unspecified; F41.9 Anxiety disorder, unspecified; M25.552 Pain in left hip; G47.00 Insomnia, unspecified; E86.9 Volume depletion, unspecified; N18.3 Chronic kidney disease, stage 3 (moderate); M10.9 Gout, unspecified; E11.22 Type 2 diabetes mellitus with diabetic chronic kidney disease; E11.42 Type 2 diabetes mellitus with diabetic polyneuropathy; R29.6 Repeated falls; Z87.442 Personal history of urinary calculi; Z82.49 Family history of ischemic heart disease and other diseases of the circulatory system; Z88.6 Allergy status to analgesic agent; Z86.010 Personal history of colon polyps
CPT/HCPCS: 10084; 10183; 10779; 10879

== ENCOUNTER 2018-11-22 12:54 | Emergency (ER) | payer OTHER ==
[~2018-11-22] VITALS: Ht 167.6 cm; Wt 98.9 kg
[~2018-11-22 12:54] MED LIST changes: +CALTRATE-600 W1 EACH PO; +COZAAR 50 MG TA50 M1 PO; +EXTRA STRENGTH85 GM TOP; +GLUCAGEN1 MG/1 ML IM; +MELATONIN5 M1 PO; +NOVOLOG100 UNIT/1 SUBQ; +PACERONE 200 M200 M1 PO
[2018-11-22 17:05] LABS: ABSOLUTE NEUTROPHILS 5.3 thou/uL (1.4-8.2); BASOPHILS 0.7 % (0.0-2.0); EOSINOPHILS 0.2 % (0.0-3.0); HEMATOCRIT 33.5 % (37.0-47.0); LYMPHOCYTES 12.2 % (24.0-44.0); MCH 30.6 pg (26.0-34.0); MCHC 32.8 g/dL (28.0-37.0); MCV 93.1 fL (80.0-100.0); MONOCYTES 9.7 % (1.0-8.0); PLATELET COUNT 244 thou/uL (150-400); POLYS 77.2 % (36.0-66.0); RDW 18.4 % (10.5-14.5); WBC 6.8 thou/uL (4.0-11.0)
[2018-11-22 17:28] LABS: URINE BILIRUBIN NEGATIVE (Negative); URINE BLOOD 2+ (Negative); URINE CLARITY SL CLOUDY; URINE COLOR YELLOW; URINE GLUCOSE-RANDOM* NEGATIVE (Negative); URINE KETONES TRACE (Negative); URINE LEUKOCYTES 3+ (Negative); URINE NITRITE NEGATIVE (Negative); URINE PROTEIN (DIPSTICK) 2+ (Negative); URINE UROBILINOGEN 0.2 E.U./dl (0.2-1.0)
[2018-11-22 17:32] LABS: ANISOCYTOSIS 2+
[2018-11-22 17:34] LABS: CALCIUM 9.3 mg/dL (8.5-10.1); POTASSIUM 4.1 mmol/L (3.5-5.1)
[2018-11-22 17:40] LABS: CASTS None Seen /LPF (None Seen); SQUAMOUS 4-10 Moderate /LPF (0-3)
[2018-11-22 17:40] LABS: ALBUMIN 3.6 g/dL (3.4-5.0); TOTAL BILIRUBIN 0.4 mg/dL (<0.1-1.0); TOTAL PROTEIN 6.9 g/dL (6.4-8.2)
[2018-11-22 17:41] LABS: BACTERIA >30 Many /HPF (None Seen); CRYSTALS None Seen /LPF (None Seen); URINE RBC 0-2 Rare /HPF (0-2); URINE WBC 6-15 Few /HPF (0-5)
[2018-11-22] MEDS ORDERED: KEFLEX500 M1 PO (19:09)
[2018-11-22 21:36] VITALS: BP 154/74
--- NOTE | 2018-11-23 09:28 | EKG ---
[address] [address] ELECTROCARDIOGRAM REPORT Name: SARAVANAN HERNANDEZ [id number] ������������������ Admission: 11/22/18 ������������������ Attend Phys: Discharge: 11/22/18 ������������������ Date of : 34 Report #: [id number] ����������������������������������������������������������������� [id number] THIS REPORT FOR: //name// [facility] ED Test Date: 2018-11-22 Test Time: 14:06:13 Pat Name: SARAVANAN HERNANDEZ Department: Room: Gender: F Director [employer]: Lucas : 1930 Requested By: Miracle Clemons Order Number: [id number] MD: Chele Melgar Measurements Intervals [place] Rate: 61 P: 72 HI: 170 QRS: 14 QRSD: 94 T: 31 QT: 424 QTc: 427 Interpretive Statements Sinus rhythm Normal tracing Compared to ECG 10/24/2018 23:45:54 Atrial fibrillation no longer present Electronically Signed On 11-23-2018 9:28:01 CDT by Chele Melgar [email or web address] ��������������������������������������������� <ELECTRONICALLY SIGNED> ���������������������������������������� By: Chele Melgar MD, [facility] ��������������������������������������������� 11/23/18 0928 1406 140 Chele Melgar MD, FACC /EPI
== END 2018-11-22 21:40 | disposition home or self-care (01) ==
LOC: ER 12:54
PROVIDERS: Physician Assistant
DX: N39.0 Urinary tract infection, site not specified (principal); R10.30 Lower abdominal pain, unspecified; E66.9 Obesity, unspecified; I10 Essential (primary) hypertension; G43.909 Migraine, unspecified, not intractable, without status migrainosus; Z88.8 Allergy status to other drugs, medicaments and biological substances; Z79.899 Other long term (current) drug therapy; Z79.4 Long term (current) use of insulin; Z96.642 Presence of left artificial hip joint

== ENCOUNTER 2018-12-02 11:02 | Emergency (ER) | payer OTHER ==
[~2018-12-02] VITALS: Ht 165.1 cm; Wt 77.1 kg
[2018-12-02 11:25] LABS: URINE BILIRUBIN NEGATIVE (Negative); URINE BLOOD NEGATIVE (Negative); URINE CLARITY CLEAR; URINE COLOR YELLOW; URINE GLUCOSE-RANDOM* NEGATIVE (Negative); URINE KETONES NEGATIVE (Negative); URINE LEUKOCYTES NEGATIVE (Negative); URINE NITRITE NEGATIVE (Negative); URINE PROTEIN (DIPSTICK) NEGATIVE (Negative); URINE SPECIFIC GRAVITY <= 1.005 (1.005-1.035); URINE UROBILINOGEN 0.2 E.U./dl (0.2-1.0)
[2018-12-02 11:35] LABS: ABSOLUTE NEUTROPHILS 4.7 thou/uL (1.4-8.2); BASOPHILS 0.9 % (0.0-2.0); EOSINOPHILS 0.1 % (0.0-3.0); HEMATOCRIT 36.6 % (37.0-47.0); HEMOGLOBIN 12.1 gm/dL (12.0-15.0); LYMPHOCYTES 13.5 % (24.0-44.0); MCH 30.4 pg (26.0-34.0); MCV 92.3 fL (80.0-100.0); MONOCYTES 8.1 % (1.0-8.0); PLATELET COUNT 352 thou/uL (150-400); POLYS 77.4 % (36.0-66.0); RBC 3.97 mil/uL (4.20-5.00); RDW 18.7 % (10.5-14.5); WBC 6.1 thou/uL (4.0-11.0)
[2018-12-02 11:42] LABS: CALCIUM 9.7 mg/dL (8.5-10.1); CREATININE 1.3 mg/dL (0.6-1.0); POTASSIUM 4.4 mmol/L (3.5-5.1)
[2018-12-02 11:47] LABS: ALBUMIN 3.4 g/dL (3.4-5.0); TOTAL BILIRUBIN 0.3 mg/dL (<0.1-1.0); TOTAL PROTEIN 6.7 g/dL (6.4-8.2)
[2018-12-02 12:08] LABS: ANISOCYTOSIS 1+; PLATELET ESTIMATE NORMAL
[2018-12-02] MEDS ORDERED: TYLENOL EXTRA500 MG PO (12:41)
[2018-12-02] MEDS ORDERED: CARVEDILOL12.5 MG PO (12:45)
[2018-12-02 12:52] VITALS: BP 109/43
== END 2018-12-02 13:52 | disposition home or self-care (01) ==
LOC: ER 11:02
PROVIDERS: Physician Assistant
DX: M79.18 Myalgia, other site (principal); I10 Essential (primary) hypertension; E11.9 Type 2 diabetes mellitus without complications; G43.909 Migraine, unspecified, not intractable, without status migrainosus; K58.9 Irritable bowel syndrome, unspecified; F32.9 Major depressive disorder, single episode, unspecified; G89.29 Other chronic pain; M54.9 Dorsalgia, unspecified; F03.90 Unspecified dementia, unspecified severity, without behavioral disturbance, psychotic disturbance, mood disturbance, and anxiety; Z96.642 Presence of left artificial hip joint; Z90.89 Acquired absence of other organs; Z88.2 Allergy status to sulfonamides; Z79.4 Long term (current) use of insulin

== ENCOUNTER 2018-12-20 19:16 | Emergency (ER) | payer OTHER ==
[~2018-12-20] VITALS: Ht 165.1 cm; Wt 74.8 kg
[~2018-12-20 19:16] MED LIST changes: +TYLENOL EXTRA500 MG PO
[2018-12-20] MEDS ORDERED: GABAPENTIN100 MG PO (19:29)
[2018-12-20 19:48] LABS: URINE BILIRUBIN NEGATIVE (Negative); URINE BLOOD 2+ (Negative); URINE CLARITY SL CLOUDY; URINE COLOR YELLOW; URINE GLUCOSE-RANDOM* NEGATIVE (Negative); URINE KETONES NEGATIVE (Negative); URINE NITRITE-REFLEX NEGATIVE (Negative); URINE PROTEIN (DIPSTICK) 1+ (Negative); URINE SPECIFIC GRAVITY 1.015 (1.005-1.035); URINE UROBILINOGEN 0.2 E.U./dl (0.2-1.0)
[2018-12-20 19:50] LABS: URINE LEUKOCYTES-REFLEX 3+ (Negative)
[2018-12-20 20:02] LABS: SQUAMOUS 0-3 Few /LPF (0-3)
[2018-12-20 20:03] LABS: BACTERIA-REFLEX >30 Many /HPF (None Seen); CASTS None Seen /LPF (None Seen); CRYSTALS None Seen /LPF (None Seen)
[2018-12-20 20:04] LABS: URINE RBC 0-2 Rare /HPF (0-2); URINE WBC-REFLEX 0-5 Rare /HPF (0-5)
[2018-12-20] MEDS ORDERED: GAS RELIEF 8080 MG PO (20:39)
[2018-12-20 22:48] VITALS: BP 188/68
== END 2018-12-20 22:28 | disposition home or self-care (01) ==
LOC: ER 19:16
PROVIDERS: Emergency Medicine
DX: M25.552 Pain in left hip (principal); R10.30 Lower abdominal pain, unspecified; G89.29 Other chronic pain; K58.9 Irritable bowel syndrome, unspecified; I10 Essential (primary) hypertension; E11.9 Type 2 diabetes mellitus without complications; G43.909 Migraine, unspecified, not intractable, without status migrainosus; F32.9 Major depressive disorder, single episode, unspecified; F03.91 Unspecified dementia, unspecified severity, with behavioral disturbance; Z96.642 Presence of left artificial hip joint; Z88.8 Allergy status to other drugs, medicaments and biological substances

== ENCOUNTER 2019-06-14 13:22 | Observation (INO) | payer OTHER ==
[~2019-06-14] VITALS: Ht 165.1 cm; Wt 77.1 kg
[~2019-06-14 13:22] MED LIST changes: +GABAPENTIN100 MG PO; +GAS RELIEF 8080 MG PO
[2019-06-14 13:24] VITALS: BP 140/47
[2019-06-14 13:47] LABS: HEMATOCRIT 35.7 % (37.0-47.0); HEMOGLOBIN 11.9 gm/dL (12.0-15.0); MCH 33.9 pg (26.0-34.0); MCHC 33.5 g/dL (28.0-37.0); MCV 101.4 fL (80.0-100.0); PLATELET COUNT 250 thou/uL (150-400); RBC 3.52 mil/uL (4.20-5.00); RDW 13.6 % (10.5-14.5); WBC 7.4 thou/uL (4.0-11.0)
[2019-06-14 13:54] LABS: CALCIUM 8.6 mg/dL (8.5-10.1); CREATININE 1.5 mg/dL (0.6-1.0); POTASSIUM 5.1 mmol/L (3.5-5.1)
[2019-06-14 17:50] VITALS: BP 148/54
[2019-06-15 06:58] VITALS: BP 115/47
[2019-06-15 08:00] VITALS: BP 150/63
[2019-06-15] MEDS ORDERED: APAP W/CODEINE1 TA2 PO (14:15)
[2019-06-15] MEDS ORDERED: AUGMENTIN 500-1 EACH PO (14:15)
[2019-06-15 16:41] VITALS: BP 185/65
[2019-06-15 20:24] VITALS: BP 165/62
--- NOTE | 2019-06-15 21:14 | NUR ---
PATIENT ARRIVED ON 4W ABOUT 0800 AND ORIENTED TO SELF. ADMISSION STATUS CHANGED TO OBSERVATION AND PLAN TO DISCHARGE [facility]. PATIENT IN NO PAIN AND COOPERTIVE WITH POC. PATIENT INCONTINENT THROUGHOUT THE DAY.
--- NOTE | 2019-06-16 04:01 | NUR ---
Assumed pt care @1915. pt a&ox3. ambulates with 1 assist and a walker to [facility]. pt's been incont most of the shift. pain conrolled with current regimen. v/s stable. no s/s of distress. fall prec in place. will cont to monitor
[2019-06-16 07:06] VITALS: BP 165/65
--- NOTE | 2019-06-16 09:05 | NUR ---
PT ADMITTED S/P FALL WITH NASAL BONE AND ORBITAL FLOOR FX. CM MET WITH PT AT BEDSIDE THIS DAY. PT IS A&O X4. CM ROLE INTRODCUED. CARE TEAM INDICATED THAT PT WAS MEDIALLY STABLE TO DC BACK TO LTC AT [facility] YESTERDAY. CM CAND DC NUC[employer] MECHANICAL SPECIALIST CALLED ADMISSIONS AT FACILITY AND RECIEVED NO ANSWER OR RESPONSE. ORDERES WERE FAXED. CHART COPY ORDERED. CM ATTEMPTED PC TO PT'S SON AND THE MUBMER ON RECORD IS NON WORKING, NO FACESHEET ON CHART FROM FACILITY. ANTICPATED THAT PT WILL BE ABLE TO DC TO [facility] TODAY. CM TO FOLLOW.
[2019-06-16 11:55] LABS: HEMATOCRIT 37.4 % (37.0-47.0); HEMOGLOBIN 12.2 gm/dL (12.0-15.0); MCH 33.1 pg (26.0-34.0); MCHC 32.6 g/dL (28.0-37.0); MCV 101.6 fL (80.0-100.0); PLATELET COUNT 269 thou/uL (150-400); RBC 3.68 mil/uL (4.20-5.00); RDW 13.6 % (10.5-14.5); WBC 11.1 thou/uL (4.0-11.0)
[2019-06-16 12:04] VITALS: BP 126/49
[2019-06-16 12:26] LABS: ALBUMIN 3.4 g/dL (3.4-5.0); CALCIUM 8.7 mg/dL (8.5-10.1); CREATININE 1.5 mg/dL (0.6-1.0); MAGNESIUM 2.1 mg/dL (1.8-2.4); POTASSIUM 4.5 mmol/L (3.5-5.1); TOTAL BILIRUBIN 0.4 mg/dL (<0.1-1.0); TOTAL PROTEIN 7.4 g/dL (6.4-8.2)
[2019-06-16 12:43] LABS: ABSOLUTE NEUTROPHILS 9.2 thou/uL (1.4-8.2)
[2019-06-16 12:44] LABS: ANISOCYTOSIS SLIGHT
[2019-06-16 15:10] LABS: URINE BILIRUBIN NEGATIVE (Negative); URINE BLOOD 1+ (Negative); URINE CLARITY CLEAR; URINE COLOR YELLOW; URINE GLUCOSE-RANDOM* TRACE (Negative); URINE KETONES NEGATIVE (Negative); URINE LEUKOCYTES-REFLEX TRACE (Negative); URINE NITRITE-REFLEX NEGATIVE (Negative); URINE PROTEIN (DIPSTICK) 1+ (Negative); URINE SPECIFIC GRAVITY 1.015 (1.005-1.035); URINE UROBILINOGEN 0.2 E.U./dl (0.2-1.0)
[2019-06-16 15:24] LABS: BACTERIA-REFLEX None Seen /HPF (None Seen); CASTS None Seen /LPF (None Seen); CRYSTALS None Seen /LPF (None Seen); SQUAMOUS None Seen /LPF (0-3); URINE RBC 0-2 Rare /HPF (0-2); URINE WBC-REFLEX None Seen /HPF (0-5)
--- NOTE | 2019-06-16 15:48 | NUR ---
Patient Discharged back to [facility]. She left with [place] Staff Member at 1525. Patient wanted to stay at this Hospital, did not want to go back. Systolic Blood pressure was a little elevated this am; her blood pressure medications reduced this to normal levels therefore, Physician was not notified. Patient requested and received "Tylenol three" for right eye pain x's 2. Medication was effective in reducing her pain. Patient had a UA taken to lab prior to leaving. Results are normal. POC followed.
== END 2019-06-16 16:00 | disposition home or self-care (01) ==
LOC: ER 13:22 → 4W 16:12 → EROBS 16:12 → 4W 16:12 → EROBS 06-15 04:00 → 4W 06-15 07:42
PROVIDERS: Internal Medicine; Nurse Practitioner Family; ADMIT Internal Medicine
DX: S02.32XA Fracture of orbital floor, left side, initial encounter for closed fracture (principal); S02.2XXA Fracture of nasal bones, initial encounter for closed fracture; S43.409A Unspecified sprain of unspecified shoulder joint, initial encounter; E11.9 Type 2 diabetes mellitus without complications; F32.9 Major depressive disorder, single episode, unspecified; K58.9 Irritable bowel syndrome, unspecified; F03.90 Unspecified dementia, unspecified severity, without behavioral disturbance, psychotic disturbance, mood disturbance, and anxiety; G43.909 Migraine, unspecified, not intractable, without status migrainosus; K21.9 Gastro-esophageal reflux disease without esophagitis; G47.00 Insomnia, unspecified; N17.9 Acute kidney failure, unspecified; I12.9 Hypertensive chronic kidney disease with stage 1 through stage 4 chronic kidney disease, or unspecified chronic kidney disease; E11.22 Type 2 diabetes mellitus with diabetic chronic kidney disease; N18.9 Chronic kidney disease, unspecified; R41.82 Altered mental status, unspecified; W19.XXXA Unspecified fall, initial encounter; Y93.89 Activity, other specified; Y92.89 Other specified places as the place of occurrence of the external cause; Y99.8 Other external cause status

== ENCOUNTER 2019-12-02 09:43 | Emergency (ER) | payer OTHER ==
[~2019-12-02] VITALS: Ht 165.1 cm; Wt 74.8 kg
[~2019-12-02 09:43] MED LIST changes: +APAP W/CODEINE1 TA2 PO; +AUGMENTIN 500-1 EACH PO
[2019-12-02 11:17] LABS: URINE BILIRUBIN NEGATIVE (Negative); URINE BLOOD NEGATIVE (Negative); URINE CLARITY CLEAR; URINE COLOR YELLOW; URINE GLUCOSE-RANDOM* NEGATIVE (Negative); URINE KETONES NEGATIVE (Negative); URINE LEUKOCYTES-REFLEX NEGATIVE (Negative); URINE NITRITE-REFLEX NEGATIVE (Negative); URINE PROTEIN (DIPSTICK) 3+ (Negative); URINE UROBILINOGEN 0.2 E.U./dl (0.2-1.0)
[2019-12-02] MEDS ORDERED: GAS RELIEF80 MG PO (11:54)
[2019-12-02 12:06] LABS: BACTERIA-REFLEX None Seen /HPF (None Seen); CASTS None Seen /LPF (None Seen); CRYSTALS None Seen /LPF (None Seen); SQUAMOUS None Seen /LPF (0-3); URINE RBC None Seen /HPF (0-2); URINE WBC-REFLEX None Seen /HPF (0-5)
[2019-12-02 12:10] VITALS: BP 181/65
== END 2019-12-02 12:10 | disposition home or self-care (01) ==
LOC: ER 09:43
PROVIDERS: Emergency Medicine
DX: G89.29 Other chronic pain (principal); R10.84 Generalized abdominal pain; I10 Essential (primary) hypertension; E11.9 Type 2 diabetes mellitus without complications; G43.909 Migraine, unspecified, not intractable, without status migrainosus; Z88.8 Allergy status to other drugs, medicaments and biological substances; Z79.899 Other long term (current) drug therapy; Z96.642 Presence of left artificial hip joint